=== PATIENT | female | born 1935 | race Caucasian/White ===

== ENCOUNTER 2023-10-18 10:42 | Outpatient (RCR) | payer OTHER, SELFPAY | END 2023-10-18 12:12 | disposition home or self-care (01) | LOC: RPT 10:42 | PROVIDERS: ATTENDING PHYSICIAN Orthopaedic Surgery Sports Medicine; PRIMARYCARE PHYSICIAN Family Medicine | DX: Z47.1 Aftercare following joint replacement surgery (principal); Z96.651 Presence of right artificial knee joint; R26.89 Other abnormalities of gait and mobility | CPT/HCPCS: 97010; 97110; 97112 ==

== ENCOUNTER 2024-02-15 13:03 | Inpatient (IN) | payer OTHER, SELFPAY ==
[2024-02-15] VITALS (27 sets, daily range): BP systolic 88–151; BP diastolic 54–97; BMI 25.3; BMI 24.8
--- NOTE | 2024-02-15 10:20 | ED.GENMED ---
History of Present Illness
General
Chief Complaint: Heart Rate Problem
Time Seen by Provider: 02/15/24 10:20
Travel History
Have you had any contact with someone who has COVID-19?: No
Do you have any symptoms of coronavirus? Fever > 100 degrees, chills, cough, shortness of breath, sore throat, loss of taste or smell, muscle aches, or headache?: No
History of Present Illness
History of Present Illness:
HPI: The patient called EMS today as she checked her blood pressure and heart rate and they are both elevated. She does not sense palpitations. She does not have a history of A-fib but was found to be in new onset rapid A-fib. 5 days ago she was
diagnosed with Flu A and has been having nausea, vomiting, and diarrhea. She feels somewhat dehydrated. She has never been to a watch repair person. She has PMD and urgent care this past week of not performed EKGs.
EXAM:
GENERAL: Well appearing in no distress
HEENT: Moist oral mucosa
CARDIOVASCULAR: No murmurs, tachycardic heart rate, irregular rhythm, No chest wall tenderness
PULMONARY: No respiratory distress, breath sounds are clear and equal
ABDOMEN: Soft with no peritoneal signs, no tenderness
NEUROLOGIC: Excellent strength all extremities, no coordination deficits
PSYCHIATRIC: Appropriate mental status, normal insight and judgement
EXTREMITIES: Nontender, no edema, moves all extremities equally
SKIN: No rash, no lesions
TIME OF INITIAL ENCOUNTER: 10:30 AM
NUMBER AND COMPLEXITY OF PROBLEMS ADDRESSED AT THE ENCOUNTER
� Chronic conditions affecting care: High blood pressure, CKD
� Acute Exacerbation and/or Progression of Chronic Illness: This is an acute problem
� Differential Diagnosis includes: New onset A-fib, dysrhythmia, thyroid disease
AMOUNT AND/OR COMPLEXITY OF DATA TO BE REVIEWED AND ANALYZED
� I performed an independent evaluation of and my interpretation is:
EKG: A-fib, rate of 133, PVCs, EKG on 08/29/2021 showed a sinus rhythm
CT:
X-rays:
Laboratory Studies: CBC, chemistries, TSH, troponin unremarkable
Other:
� Review of other/old records: I reviewed lab work from 2020 which was unremarkable
� Clinical information was obtained by an independent historian: James was given IV fluids prior to arrival
� Prescriptions/Medications Considered but not given:
� Further testing considered but not performed:
RISK OF COMPLICATIONS AND/OR MORBIDITY OR MORTALITY OF PATIENT MANAGEMENT
� Social determinants of health affecting care: Lives at home
� Discussion with other providers: I discussed with Dr. Riojas and he agrees that given that the time of onset of A-fib is unclear, he agrees that it would be too unsafe to cardiovert in the ED.
� Escalation of care including admission/observation vs risk of discharge considered: She has new onset A-fib but the time of onset is unclear. Dehydration may be a contributing factor and she was given IV fluids. Labs are
unremarkable. She was placed on Cardizem bolus and drip. Vital signs were closely monitored.
Past History
Past History
ED Past Medical History: HTN
ED Past Surgical History: Cholecystectomy and Orthopedic
Social History
Tobacco: Non-smoker
Personal:
Living: with family
Employment: Retired
Phy Exam
Physical Exam
Physical Exam:
See HPI
Course
Orders/Labs/Results
Orders:
Orders
02/15/24 Breakfast
Cholesterol Lowering
At Your Request: Full Participation
Cholesterol Lowering: Sodium, 2 Gram
02/15/24 10:17
Electrocardiogram (*1) Urgent
Reason for Study: Palpitations
EKG- Treatment ONCE
02/15/24 10:22
0.9% Sodium Chloride 500 ml [Nss] 500 ml IV BOLUS
02/15/24 10:23
CMP [Comprehensive Metabolic Panel] Urgent
Complete Blood Count/With Diff Urgent
Magnesium Urgent
PT/INR [Prothrombin Time] Urgent
PTT Urgent
02/15/24 10:24
TSH Reflex To Free T4 Urgent
Troponin I Urgent
02/15/24 11:10
Diltiazem 125 mg/125 ml Nss [Cardizem] 125 mg in 125 ml IV NOW
Initial dose in mg/hr, then titrate:: 10
Titrate to keep:: Heart rate 80-100 bpm
Titrate by mg/hr:: 5 mg/hr
Frequency of titrations (minutes):: 15
Maximum dose in mg/hr:: 15
Diltiazem HCl [Cardizem] 10 mg IV NOW STA
02/15/24 12:36
Admit/Transfer Patient As Directed
Co-Sign Provider:
Level of Care: Inpatient admission
Assign to:: IVU
Physician / Group: [email or web address]
Diagnosis: atrial fib with RVR
Reason for Hospitalization: atrial fib with RVR
Expected length of stay greater than two midnights?: Yes
ELOS- Estimated Length of Stay in days: 3
I certify the patient meets the requirements for IP care: Yes
02/15/24 12:37
Code Status As Directed
Resuscitation Status: Full Code
02/15/24 13:10
COVID-19 Antigen Routine
Source: Nasal Swab
Influenza A+B Rapid Molecular Urgent
SUZANNA Source: Nasal Swab
Specimen Description:
02/15/24 16:59
0.9% Sodium Chloride 1000 ml [Nss] 1,000 ml IV 60 mls/hr
02/15/24 16:59
CARDIOLOGY CONSULT Routine
Consulting Provider: Abad Riojas
Was physician already notified: Yes
Activity As Directed
Activity Level: As Tolerated
Vital Signs As Directed
Frequency: Per unit guidelines
DX Deep Vein Thrombosis Video Routine
02/15/24 20:00
Acetaminophen [Tylenol] 650 mg PO BID
02/16/24 04:59
Basic Metabolic Panel IN AM
Complete Blood Count/No Diff IN AM
02/16/24 08:00
Citalopram [Celexa] 20 mg PO DAILY
Lisinopril [Zestril] 5 mg PO DAILY
Rosuvastatin Calcium [Crestor] 5 mg PO DAILY
Abnormal Lab Results
02/15/24
10:23
MCH 32.0 H pg
(27.0-31.0)
Plt Count 123 L 10^3/uL
(130-400)
Monocytes % 10.2 H %
(1.7-9.3)
Sodium 132 L mmol/L
(135-145)
Glucose 132 H mg/dl
(70-99)
Total Protein 6.2 L g/dl
(6.3-8.2)
02/15/24 10:23
02/15/24 10:23
Vital Signs
Initial and Last Documented VS:
Initial Vital Signs
Temp Resp Pulse Ox
98.0 F 18 97
02/15/24 10:08 02/15/24 10:08 02/15/24 10:08
Last Documented Vital Signs
Temp Pulse Resp BP Pulse Ox
98.6 F 77 16 153/89 97
02/16/24 13:27 02/16/24 13:27 02/16/24 13:27 02/16/24 13:27 02/16/24 13:27
*Critical Care Note
Total Time (30-74mins, 75-104mins- exclusive of procedures): Not Applicable
ED Attending Note
-
Portions of this chart may have been created with voice recognition software.� Occasional wrong word or��sound alike� substitutions may have occurred due to the inherent limitations of voice recognition software.
Discharge Plan
Departure
Patient Disposition: Admit
Date of Disposition: 02/15/24
Time of Disposition: 12:55
Presentation/result/management discussed w/ accepting MD/DO: Hospitalist
Discharge Problem:
Atrial fibrillation with RVR
Interventions
Interventions:
*Risk Screen - Suicide Last Done: 02/15/24 10:08
*General Assessment Last Done: 02/15/24 10:08
*Neglect/Abuse Screening Last Done: 02/15/24 10:21
ED- Fall Risk Assessment Last Done: 02/15/24 10:34
*ED COVID-19 Vaccine History Last Done: 02/15/24 10:08
*Nursing Disposition Last Done: 02/15/24 16:55
ED- Cardiac Assessment Last Done: 02/15/24 10:08
ED- Pulmonary Assessment Last Done: 02/15/24 10:08
Discharge Date and Time
Discharge Date/Time: 02/15/24 17:00
[2024-02-15] MEDS: NSS 500 IV (10:27)
[2024-02-15 10:39] LABS: % Basophils 0.2 % (0-2); % Eosinophils 0.8 % (0-6); % Immature Granulocytes 0.4 % (0-0.5); % Lymphocytes 33.9 % (20.5-51.1); % Monocytes 10.2 % (1.7-9.3); % Neutrophils 54.5 % (42.2-75.2); Absolute Lymphocytes 1.8 10^3/uL (1.2-3.4); Absolute Monocytes 0.5 10^3/uL (0.1-0.6); Absolute Neutrophils 2.9 10^3/uL (1.4-6.5); Hematocrit 41.8 % (37.0-47.0); Mean Corp Hgb Conc. 33.5 g/dL (33.0-37.0); Mean Corpuscular Volume 95.7 fL (81.0-99.0); Mean Platelet Volume 10.1 fL (7.4-10.4); Nucleated Red Blood Cells % 0 %; Platelet Count 123 10^3/uL (130-400); Red Blood Cell Count 4.37 10^6/uL (4.20-5.40); Red Cell Dist. Width 13.1 % (11.5-14.5); White Blood Cell Count 5.2 10^3/uL (4.8-10.8)
[2024-02-15 10:47] LABS: APTT 25.9 Sec (23.4-35.0); INR 1.01; PT 13.1 Sec (11.4-14.6)
[2024-02-15 11:06] LABS: ALT (SGPT) 34 U/L (0-35); AST (SGOT) 35 U/L (14-36); Alkaline Phosphatase 66 U/L (38-126); Carbon Dioxide 24 mmol/L (22-30); Estimated Creatinine Clearance 45 ml/min; Glucose 132 mg/dl (70-99); Total Protein 6.2 g/dl (6.3-8.2); eGFR > 60.00
[2024-02-15 11:06] LABS: Troponin I < 0.012 ng/ml
[2024-02-15] MEDS: CARDIZEM 10 MG IV (11:14)
[2024-02-15] MEDS: CARDIZEM 125 IV (11:15)
[2024-02-15 11:25] LABS: TSH Reflex To Free T4 0.92 uIU/ml (0.47-4.68)
[2024-02-15 11:35] LABS: Albumin 3.8 g/dl (3.5-5.0); Blood Urea Nitrogen 11 mg/dl (7-17); Calcium 9.1 mg/dl (8.4-10.2); Chloride 103 mmol/L (98-107); Magnesium 1.7 mg/dl (1.6-2.3); Potassium 3.7 mmol/L (3.5-5.1); Sodium 132 mmol/L (135-145); Total Bilirubin 0.4 mg/dl (0.2-1.3)
--- NOTE | 2024-02-15 12:07 | HPS.HSE ---
Family Physician
-
Family Physician: Faith Carrera MD
Chief Complaint
-
elevated HR and BP
History of Present Illness
88 year old with PMH for HTN, CKD, HLD presented to us with elevated blood pressure and HR. checked her blood pressure and heart rate and they are both elevated. She does not sense palpitations. patient was tested positive on . she had
diarrhea since Wednesday. statues nauseous and epigastric pain. denied vomiting. denied fever, chills, sob, chest pain. denied runny nose, nasal congestion and cough. denied dysuria or hematuria.
On arrival patient was in A-fib with RVR. Initiated on Cardizem drip. Admitting for further management.
Medical History
Past Medical History
Past Medical History: Reports Other
Additional Past Medical History:
Hypertension
Chronic kidney disease stage III
Vertigo
Anxiety
Hyperlipidemia
Past Surgical History: Reports Other
Additional Past Surgical History:
Cholecystectomy
Lumbar laminectomy
Cataract surgery
Left hand carpal tunnel surgery
Right knee replacement
Social History
Tobacco: Former Smoker
Alcohol: Daily (1 glass of wine)
Drug: None
Personal:
Living: With Family
Family History
Family History: Not pertinent
Allergies / Home Medications
Allergies reflects when Allergies were last updated in [employer].
Home Medications with original date entered in [employer]
Allergy/Medication List:
Allergies
Allergy/AdvReac Type Severity Reaction Status Date / Time
No Known Allergies Allergy Unverified 08/29/21 17:34
Home Medications
acetaminophen 650 mg tablet,extended release 1,300 mg PO BID 02/15/24
benzonatate 100 mg capsule 100 mg PO TID PRN cough 02/15/24
calcium 1 tab PO DAILY 02/15/24
cholecalciferol (vitamin D3) 25 mcg (1,000 unit) tablet 25 mcg PO DAILY 02/15/24
citalopram 20 mg tablet 20 mg PO DAILY 02/15/24
coenzyme Q10 100 mg capsule (CoQ-10) 100 mg PO DAILY 02/15/24
fluticasone propionate 50 mcg/actuation nasal spray,suspension 1 spray intranasal DAILY 02/15/24
fluticasone propionate 50 mcg/actuation nasal spray,suspension 1 spray intranasal HSPRN PRN congestion 02/15/24
inulin 2 gram chewable tablet (Fiber Gummies) 4 g PO DAILYPRN PRN constipation 02/15/24
lisinopril 5 mg tablet 5 mg PO DAILY 02/15/24
loperamide 2 mg capsule 2 mg PO DAILYPRN PRN diarrhea 02/15/24
rosuvastatin 5 mg tablet 5 mg PO DAILY 02/15/24
Review of Systems
-
Constitutional: Reports No Symptoms
EENT: Reports No Symptoms
Respiratory: Reports No Symptoms
Cardiac: Reports Palpitations
Abdomen/GI: Reports Abdominal Pain and Diarrhea
: Reports No Symptoms
Musculoskeletal: Reports No Symptoms
Skin: Reports No Symptoms
Neurological: Reports Other (Lightheaded)
Endocrine: Reports No Symptoms
Hematologic/Lymphatic: Reports No Symptoms
Psych: Reports No Symptoms
Physical Exam
Vital Signs
Vital Signs
Temp Pulse Resp BP Pulse Ox
98.0 F 106 17 115/73 94
02/15/24 10:08 02/15/24 11:45 02/15/24 11:45 02/15/24 11:45 02/15/24 11:30
Physical Exam
General: Well Developed, Well Nourished and No Apparent Distress
HEENT: NormoCephalic, Moist mucous membranes and Atraumatic
Respiratory: Clear
Cardiac: S1/S2 and Regular Rhythm; No Murmur or Rub
GI: Soft, Non Tender, Non Distended and Normal Bowel Sounds; No Organomegaly
Rectal: Deferred by Provider
Musculoskeletal: No Clubbing, No Cyanosis and No Edema
Skin: No Rash
Neuro: AO x 3 and Nonfocal/grossly intact
Psych: Calm
Laboratory Results
-
02/15/24 10:23
02/15/24 10:23
Laboratory Results
PT 13.1 Sec (11.4-14.6) 02/15/24 10:23
INR 1.01 02/15/24 10:23
APTT 25.9 Sec (23.4-35.0) 02/15/24 10:23
Total Bilirubin 0.4 mg/dl (0.2-1.3) 02/15/24 10:23
AST 35 U/L (14-36) 02/15/24 10:23
ALT 34 U/L (0-35) 02/15/24 10:23
Alkaline Phosphatase 66 U/L (38-126) 02/15/24 10:23
Troponin I < 0.012 ng/ml 02/15/24 10:24
Data Reviewed
-
Lab Data: Labs Reviewed by me
Impression/Plan
-
#new onset atrial fib
-HR 100-130, improved with Cardizem drip
-EKG with atrial fib with RVR
-Cardizem drip continued
-obtain ECHO
-cardiology consulted
-#n//d likely from influenza A
-diarrhea improving
-ctm
-obtain stool culture if continued to have diarrhea
-
#hyponatremia likely hypovolemic
-na 132
-received normal saline bolus in ER
-normal saline 60cc/hr continued
-BmP in am
# Anxiety
-Citalopram continued
# Essential hypertension
-hypertensive on arrival
-Bp improved
-Lisinopril continued
# Hyperlipidemia
-Statin continued
# DVT prophylaxis
-Lovenox subcu
# CODE STATUS
-Full code
[2024-02-15 13:31] LABS: COVID-19 Antigen Negative (Negative)
--- NOTE | 2024-02-15 14:12 | W.PN.UPDATE ---
Update Note
Progress Note Update
HPI: 88 year old with PMH HTN, CKD, HLD presented with new onset atrial fibrillation with RVR.
She was flu positive 5 days ago, and according to patient, she is already out of the window for Tamiflu per her PCP.
She has been having nausea vomiting and diarrhea since her diagnosis of influenza, the symptoms have improved.
In the ER, she was started with Cardizem drip for rate control.
A/P:
# new onset atrial fibrillation with RVR on admission
Patient was started with Cardizem drip, continue for now.
Check echocardiogram
Cardiology consult, defer anticoagulation to cardiology
# N/V/D from influenza A
Symptoms are improving, continue to monitor
# Mild hyponatremia
# Anxiety
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
# Essential hypertension
Continue prior to admission lisinopril
Patient already on Cardizem drip for rate control currently
# Hyperlipidemia
Statin continued
DVT prophylaxis-Lovenox subcu
CODE STATUS-Full code
--- NOTE | 2024-02-15 14:24 | CON.CAR ---
Addendum entered and electronically signed by Abad Riojas MD 02/15/24 17:02:
I saw and examined the patient.
The PATIENT FINANCIAL COUNSELOR or PA's note was reviewed and I agree with the note.
88-year-old woman with a history of hypertension and hypercholesterolemia who presents with rapid heartbeat and noticed to have A-fib. Patient states she was not feeling well on February 07 and February 08 and went to see her PCP on the she is
generally did not feel well had nausea and was diagnosed with the flu. She then says she was feeling better until this morning when she was bending over to get something and then felt lightheaded and could tell her heart was beating faster she took
her heart rate and states it was as high as 150 went to the ER was noted to have A-fib with RVR. Rate controlled with IV Cardizem after being in the ER for a while the patient converted back to sinus rhythm. Currently comfortable and without
symptoms. No prior history of palpitations no prior history of A-fib. She has a history of hypertension but denies having a history of heart failure, CVA, TIA, PAD, CAD or diabetes.
-Newly diagnosed symptomatic PAF
-CHADSVASC - 4 (age greater than 75, female and hypertension)
-Patient currently in sinus rhythm
-Hold lisinopril and monitor blood pressure as Cardizem was added.
-Stop IV Cardizem and transition to Cardizem CD 120 mg today.
Eliquis 5 mg twice daily
-Eliquis 5 mg twice daily
Original Note:
Consultation
Consultation Request
Date/Time Consultation Requested: 02/15/24 12:30
Date/Time Consultation Performed: 02/15/24 14:30
Requesting Provider: EDDY Marcos
Performing Provider: EDDY Gaviria for Dr. Riojas
Reason for Consultation: Atrial fibrillation with RVR
Medical History
-
Chief Complaint: Elevated heart rate
History of Present Illness:
Zulema Goldman is an 88-year-old female with hypertension, dyslipidemia, and chronic kidney disease who presented to the emergency department with chief complaint of elevated heart rate and elevated blood pressure. She woke up this morning and was
feeling unwell. She checked her blood pressure and she reports the systolic was over 200 and her heart rate was in the 130s. She presented to the emergency department. She was found to have atrial fibrillation with rapid ventricular response.
She believes it started that morning but was unsure. She had no palpitations, dizziness, nor shortness of breath. She saw her PCP 02/10/2024 and tested positive for influenza A. She had already had ~48 hours of symptoms so she was not given any
Tamiflu. She reports she was slowly improving at home and was nearing back to normalcy.
Past Medical History
Past Medical History: HTN and Hypercholesterolemia
Past Surgical History: Cholecystectomy and Orthopedic
Social History
Tobacco: Former Smoker
Alcohol: Daily (1 glass of wine)
Drug: None
Personal:
Living: With Family
Employment: Retired
Family History
Family History: Other (Mother in 50s with CVA. Brother 60s due to ME.)
Allergies / Home Medications
Allergy/AdvReac Type Severity Reaction Status Date / Time
No Known Allergies Allergy Unverified 08/29/21 17:34
�Medication �Instructions �Recorded �Confirmed �Type
acetaminophen 650 mg 1,300 mg PO BID 02/15/24 02/15/24 History
tablet,extended release
benzonatate 100 mg capsule 100 mg PO TID PRN cough 02/15/24 02/15/24 History
calcium 1 tab PO DAILY 02/15/24 02/15/24 History
cholecalciferol (vitamin D3) 25 25 mcg PO DAILY 02/15/24 02/15/24 History
mcg (1,000 unit) tablet
citalopram 20 mg tablet 20 mg PO DAILY 02/15/24 02/15/24 History
coenzyme Q10 100 mg capsule 100 mg PO DAILY 02/15/24 02/15/24 History
(CoQ-10)
fluticasone propionate 50 1 spray intranasal DAILY 02/15/24 02/15/24 History
mcg/actuation nasal
spray,suspension
fluticasone propionate 50 1 spray intranasal HSPRN PRN 02/15/24 02/15/24 History
mcg/actuation nasal congestion
spray,suspension
inulin 2 gram chewable tablet 4 g PO DAILYPRN PRN constipation 02/15/24 02/15/24 History
(Fiber Gummies)
lisinopril 5 mg tablet 5 mg PO DAILY 02/15/24 02/15/24 History
loperamide 2 mg capsule 2 mg PO DAILYPRN PRN diarrhea 02/15/24 02/15/24 History
rosuvastatin 5 mg tablet 5 mg PO DAILY 02/15/24 02/15/24 History
Review of Systems
-
History Source: Patient
All other systems: Negative unless noted
Constitutional: Fatigue
Respiratory: No Symptoms
Cardiac: No Symptoms
Abdomen/GI: Diarrhea
Physical Exam
Vital Signs
Temp Pulse Resp BP Pulse Ox
98.0 F 74 21 100/80 96
02/15/24 10:08 02/15/24 13:46 02/15/24 13:46 02/15/24 13:46 02/15/24 13:46
Lab Results
02/15/24 10:23
02/15/24 10:23
Troponin I < 0.012 ng/ml 02/15/24 10:24
Impression / Plan
-
Atrial fibrillation with RVR, new diagnosis
-Onset unknown, no palps with rate 130s
-Back in sinus on diltiazem 5mg/hour, transition to oral
-Oral Anticoagulation: None prior to arrival, case management to [facility] Apixaban 5mg
-[id number]: score at least 4 (HTN, age 75 or more, female gender)
-TTE
Influenza A, positive 02/10/24, symptoms started 02/06-07/25, per primary
Diarrhea, per primary
HTN, follow
HLD, on rosuvastatin 5mg
Data Reviewed
-
EKG: Report Reviewed by me (Atrial fibrillation with RVR, rate 133)
Labs: Labs Reviewed by me
Old Records: Reviewed
[2024-02-15 16:13] LABS: Urine Albumin Negative (Neg - Trace); Urine Bilirubin Negative (Negative); Urine Character Clear (Clear); Urine Color Yellow; Urine Glucose Negative (Negative); Urine Ketone Negative (Negative); Urine Leukocyte Negative (Negative); Urine Nitrite Negative (Negative); Urine Occult Blood Negative (Negative); Urine Specific Gravity 1.005 (<1.030); Urine Urobilinogen Negative (Neg - 1+); Urine pH 6.5 (5.0-9.0)
[2024-02-15] MEDS: NSS 1000 IV (17:17)
--- NOTE | 2024-02-15 18:11 | PTCARENOTE ---
received patient from the ED. AAOx4. NSR. orders received to d/c cardizem gtt and start PO meds. IVFs ordered, and hung. 98% RA, droplet precautions placed for pos flu swab. BRP. independent with walking and care. will continue to monitor.
[2024-02-15] MEDS: ELIQUIS 5 MG PO (19:17)
[2024-02-15] MEDS: TYLENOL 650 MG PO (19:18)
[2024-02-16 04:42] VITALS: BP 151/88
--- NOTE | 2024-02-16 05:09 | DOWNTIME ---
There was a [facility] Client Manager Adult Downtime on 02/16/2024 from 0100 to 02/16/2024 at 0439. Downtime documentation of patient's care, including medication administrations, has been reconciled in the electronic record per guidelines. Refer to the
patient's paper chart under the miscellaneous tab to see printed paper medication records and downtime forms.
[2024-02-16 05:10] LABS: Hematocrit 40.1 % (37.0-47.0); Hemoglobin 13.8 g/dL (12.0-16.0); Mean Corp Hgb Conc. 34.4 g/dL (33.0-37.0); Mean Corpuscular Hgb 32.3 pg (27.0-31.0); Mean Corpuscular Volume 93.9 fL (81.0-99.0); Mean Platelet Volume 9.4 fL (7.4-10.4); Platelet Count 122 10^3/uL (130-400); Red Blood Cell Count 4.27 10^6/uL (4.20-5.40); White Blood Cell Count 3.8 10^3/uL (4.8-10.8)
--- NOTE | 2024-02-16 05:30 | PTCARENOTE ---
Patient remains SR-Sinus velma on tele monitor. HR in the 50-70's at rest. Patient denies any chest pain or discomfort. Ambulates self without difficulty. Afib packet given, education provided. Aware of POC, call kim in reach.
--- NOTE | 2024-02-16 05:31 | DOWNTIME ---
There was a [facility] Client Contact Lens Technician Downtime on 02/16/2024 from 0100 to 02/16/2024 at 0439. Downtime documentation of patient's care, including medication administrations, has been reconciled in the electronic record per guidelines. Refer to the
patient's paper chart under the miscellaneous tab to see printed paper medication records and downtime forms.
[2024-02-16 05:37] LABS: Blood Urea Nitrogen 10 mg/dl (7-17); Calcium 8.9 mg/dl (8.4-10.2); Carbon Dioxide 25 mmol/L (22-30); Chloride 108 mmol/L (98-107); Estimated Creatinine Clearance 52 ml/min; Glucose 91 mg/dl (70-99); Potassium 4.3 mmol/L (3.5-5.1); Sodium 134 mmol/L (135-145); eGFR > 60.00
[2024-02-16 07:10] VITALS: BP 176/85
[2024-02-16 07:12] VITALS: BP 173/91
[2024-02-16 08:18] VITALS: BP 162/95
[2024-02-16] MEDS: TYLENOL 650 MG PO (08:21)
[2024-02-16] MEDS: ELIQUIS 5 MG PO (08:22)
[2024-02-16] MEDS: CRESTOR 5 MG PO (08:22)
[2024-02-16] MEDS: CELEXA 20 MG PO (08:25)
[2024-02-16] MEDS: CARDIZEM CD 120 MG PO (08:25)
--- NOTE | 2024-02-16 09:13 | CM ---
Reviewed chart. Met with Mrs. Goldman to review discharge plans. She states prior to admission she resides with her spouse in a one story home with one step to enter. She states she resides in [facility]. She states she has been there for
fourteen years. She states prior to admission she was independent with ambulation and adls. She states she is not using any DME in the home. She states she has a prescription plan and uses [facility]. Telephone call to [facility],
([phone]) to check co-pay for Eliquis 5 mg po bid. Her co-pay would be $47.00 a month or $94.00 for three month supply. Reviewed co-pay s with her. She is agreeable to the co-pay. Placed the one month free coupon in the red discharge folder.
Medical work-up in progress. The discharge plan is to return home with her spouse when medically stable.
--- NOTE | 2024-02-16 10:11 | W.PN.HOSP.TC ---
Addendum entered and electronically signed by Ashwini Cantrell MD 02/16/24 10:31:
d/w Card Dr Phan, tele noted PAC with activity, cleared for discharge
total DC time 35 min
Original Note:
Today's Communication/Plan
-
see A/P
Assessment / Plan
Assessment / Plan
HPI: 88 year old with PMH HTN, CKD, HLD presented with new onset atrial fibrillation with RVR.
She was flu positive 5 days ago, and according to patient, she is already out of the window for Tamiflu per her PCP.
She has been having nausea vomiting and diarrhea since her diagnosis of influenza, the symptoms have improved.
In the ER, she was started with Cardizem drip for rate control.
A/P:
# new onset atrial fibrillation with RVR on admission, resolved
s/p Cardizem drip and pt converted back to NSR on her own
Cardizem PO 120 mg daily added
Started Eliquis 5 mg twice daily
Echocardiogram unrevealing: Normal biventricular size and systolic function without regional wall motion abnormality. No significant valvular disease. Moderate pulmonary hypertension.
Cardiology on board
# N/V/D from influenza A
Symptoms are improving, continue to monitor
Zofran PRN
# Mild hyponatremia
Sodium level 134 today
# Anxiety
cont ADMITTING OFFICE ESCORT Citalopram
# Essential hypertension
ADMITTING OFFICE ESCORT lisinopril stopped to give BP room for Cardizem PO 120 mg daily
# Hyperlipidemia
Statin continued
DVT prophylaxis-Lovenox subcu
CODE STATUS-Full code
DW Card
Anticipated Discharge: Within 24 hours
Subjective/Interval History
-
Date of Service: February 16, 2024
Objective Data
-
Labs:
Laboratory Results
02/16/24
04:59
WBC 3.8 L
Hgb 13.8
Hct 40.1
Plt Count 122 L
Sodium 134 L
Potassium 4.3
Chloride 108 H
Carbon Dioxide 25
BUN 10
Creatinine 0.7
Glucose 91
Calcium 8.9
Vital Signs:
Vital Signs
Temp Pulse Resp BP Pulse Ox
37.0 C 65 16 151/88 95
02/16/24 07:00 02/16/24 05:00 02/16/24 07:00 02/16/24 04:42 02/16/24 07:00
I&O
02/15/24 02/16/24 02/17/24
06:59 06:59 06:59
Intake Total 1260 / 1260
Balance 1260 / 1260
Review of Systems
-
All other systems: Reviewed and negative
Physical Exam
-
General: Well Developed, Well Nourished, No Apparent Distress, Comfortable and Conversant; Negative Respiratory Distress
HEENT: Normocephalic, Atraumatic, Nose Appears Normal and Ears Appear Normal; Negative Oxygen
Respiratory: Clear to Auscultation and Non Labored Respirations; Negative Accessory Resp Muscle Use
Cardiac: Regular Rhythm and S1/S2
GI: Soft, Nontender, Nondistended and Normal Bowel Sounds
Skin: Warm and Dry
Neuro: Awake, Alert, Oriented, AO x 3 and Nonfocal/Grossly Intact
Psych: Calm and Intact Judgement/Insight
Data Reviewed
-
Labs: Labs Reviewed by me
--- NOTE | 2024-02-16 10:23 | W.PN.CD ---
Today's Communication / Plan
-
- no cardiac contraindication to d/c
- MEDS: Cardizem CD 120 po qd (new), Eliquis 5 po BID (new), and rosuvastatin 5 po qd
- Follow up: Gladys Keene March 08 at 10:00
Impression / Plan
-
Impression: 88F with paroxysmal AF
Plan
Atrial fibrillation with RVR, new diagnosis
-Back in sinus on diltiazem 5mg/hour, transitioned to oral
-Oral Anticoagulation: apixaban 5 po BID
-TTE shows PASP 56 mmHg, which requires an outpatient evaluation
Influenza A, positive 02/10/24, symptoms started 02/06-07/25, per primary
Diarrhea, per primary
HTN, follow
HLD, on rosuvastatin 5mg
Dispo
- no cardiac contraindication to d/c
- MEDS: Cardizem CD 120 po qd (new), Eliquis 5 po BID (new), and rosuvastatin 5 po qd
- Follow up: Gladys Keene March 08 at 10:00
Subjective: Nausea. No CP, palps, or dyspnea
Physical Exam
Vital Signs/Labs
Vital Signs
Temp Pulse Resp BP Pulse Ox
37.0 C 65 16 151/88 95
02/16/24 07:00 02/16/24 05:00 02/16/24 07:00 02/16/24 04:42 02/16/24 07:00
02/15/24 02/16/24 02/17/24
06:59 06:59 06:59
Actual Weight 149 lb 0.52 oz
02/16/24 04:59
02/16/24 04:59
PT 13.1 Sec (11.4-14.6) 02/15/24 10:23
INR 1.01 02/15/24 10:23
APTT 25.9 Sec (23.4-35.0) 02/15/24 10:23
Magnesium 1.7 mg/dl (1.6-2.3) 02/15/24 10:23
LAB Results
02/15/24
10:24
Troponin I < 0.012
Physical Exam
Constitutional: No acute distress
EENT: Anicteric and Moist mucous membranes
Cardiovascular: Rhythm & rate is regular, Pedal edema is absent, Systolic murmur absent and Diastolic murmur absent
Respiratory: Respiratory effort normal
GI: Soft, Distention absent, Non tender and Normal bowel sounds
Neuro/Psych: Alert
Data Reviewed
-
Date of Service: February 16, 2024
EKG: Other (SR/ST with PACs)
[2024-02-16] MEDS: ZOFRAN 4 MG IV (10:47)
[2024-02-16 10:53] VITALS: BP 137/82
[2024-02-16 13:27] VITALS: BP 153/89
--- NOTE | 2024-02-16 14:02 | W.DCSUMMARY ---
Discharge Summary
Discharge Data
Date of Admission: 02/15/24
Date of Discharge: 02/16/24
-
Pending Results: No
Hospital Course
Principal Diagnosis:
New onset atrial fibrillation with rapid ventricular rate on admission-spontaneously converted to normal sinus rhythm following Cardizem drip
Recent influenza A infection, out of window for Tamiflu
Chronic Diagnoses:�
Mild hyponatremia
Anxiety on Citalopram
Essential hypertension. 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
Hyperlipidemia
Consultations:�
Cardiology
Procedures:�
None
Clinical course:�
This is a 88 year old with past medical history as stated above, who presented with new onset atrial fibrillation with RVR.
She was tested flu positive 5 days ago prior to admission, and according to the patient, she is already out of the window for Tamiflu per her PCP.
Problem 1:
New onset atrial fibrillation with RVR on admission.
Patient was started with Cardizem drip and she spontaneously converted back to normal sinus rhythm.
She was started with Cardizem PO 120 mg daily by cardiology which she can continue going forward.
She was also started with Eliquis 5 mg twice daily.
Her echocardiogram was unrevealing: Normal biventricular size and systolic function without regional wall motion abnormality. No significant valvular disease. Moderate pulmonary hypertension.
Problem 2:
Nausea from influenza A.
Symptoms improved.
She was discharged with Zofran 3 doses for as needed use for nausea.
As for the rest of her medical problems, they were stable during her hospital stay.
Discharge Plan
-
Patient Disposition: Home (Routine Discharge)
Discharge Diagnosis/Procedures: New onset atrial fibrillation (resolved); nausea from influenza A infection
Condition: Good
Diet: As tolerated
Activity: As tolerated
Driving Restrictions: As prior to admission
Referrals:
Japanese,Faith A., MD [Family Provider] - in less than 1 week
Additional Discharge Medication Instructions: Take Cardizem 120 mg daily
Stop Lisinopril
Take Eliquis (blood thinner) for your A fib
Prescriptions:
New
diltiazem HCl [Cartia XT] 120 mg Capsule,Extended Release 24hr
120 mg PO DAILY Qty: 30 0RF
ondansetron HCl 4 mg tablet
4 mg PO DAILY PRN (Reason: nausea and vomiting) 3 Days Qty: 3 0RF
Eliquis 5 mg Tablet
5 mg PO BID Qty: 60 0RF
Continued
loperamide 2 mg Capsule
2 mg PO DAILYPRN PRN (Reason: diarrhea)
acetaminophen 650 mg Tablet Extended Release
1,300 mg PO BID
citalopram 20 mg Tablet
20 mg PO DAILY
benzonatate 100 mg Capsule
100 mg PO TID PRN (Reason: cough)
Patient Comments:
02/15/2024, per pt., this med. makes her nauseous.
fluticasone propionate 50 mcg/actuation [place],Suspension
1 spray INTRANASAL DAILY
fluticasone propionate 50 mcg/actuation [place],Suspension
1 spray INTRANASAL HSPRN PRN (Reason: congestion)
coenzyme Q10 [CoQ-10] 100 mg Capsule
100 mg PO DAILY
rosuvastatin 5 mg Tablet
5 mg PO DAILY
cholecalciferol (vitamin D3) 25 mcg (1,000 unit) Tablet
25 mcg PO DAILY
Fiber Gummies 2 gram Tablet,Chewable
4 g PO DAILYPRN PRN (Reason: constipation)
calcium
1 tab PO DAILY
Discontinued
lisinopril 5 mg Tablet
5 mg PO DAILY
Discharge Orders:
Discharge Patient (As Directed); Ordered 02/16/24
Ordered By: Ashwini Cantrell
Care Plan Goals
Care Plan Goals:
Problem: Readiness for enhanced knowledge related to diagnosis and treatment plan
Goal: Understand your diagnosis and treatment plan needs, including medications if applicable.
Instructions: Know your diagnosis, underlying causes and treatment plan options, including medications if applicable. Consult with your health care team to learn about your diagnosis and treatment plan, including medications if applicable.
Discharge Date and Time
Print Language: BELARUSIAN
--- NOTE | 2024-02-16 14:06 | PTCARENOTE ---
Pt remains in SR. OOB ad maninder in the room. Relief from nausea obtained with the Zofran. Denies any pain or sob. Pt discharged to home with her . Discharge instructions given and reviewed with good understanding.
--- NOTE | 2024-02-16 14:22 | PTOTSP ---
Patient with good insight into safety and mobility. Does not currently demonstrate need for skilled therapy and will be discharged from caseload. If needs change, please re-consult.
== END 2024-02-16 14:55 | disposition home or self-care (01) | DRG 309 ==
LOC: IVU 13:03
PROVIDERS: Registered Nurse; ADMITTING PHYSICIAN Internal Medicine; CONSULT PHYSICIAN Internal Medicine Cardiovascular Disease; EMERGENCY PHYSICIAN Emergency Medicine; FAMILY PHYSICIAN Family Medicine
DX: I48.0 Paroxysmal atrial fibrillation (principal); E87.1 Hypo-osmolality and hyponatremia; I12.9 Hypertensive chronic kidney disease with stage 1 through stage 4 chronic kidney disease, or unspecified chronic kidney disease; J10.1 Influenza due to other identified influenza virus with other respiratory manifestations; Z11.52 Encounter for screening for COVID-19; Z87.891 Personal history of nicotine dependence; E86.1 Hypovolemia; F41.9 Anxiety disorder, unspecified; N18.30 Chronic kidney disease, stage 3 unspecified; E78.00 Pure hypercholesterolemia, unspecified
CPT/HCPCS: 80048; 80053; 81003; 83735; 84443; 84484; 85025; 85027; 85610; 85730; 87502; 87811; 93005; 93306; 96361; 96374; 96376; 97162; 97165; 99285

== ENCOUNTER → 2024-03-15 10:29 | Outpatient (REF) | payer OTHER, SELFPAY | LOC: HWWDC 10:29 | PROVIDERS: ATTENDING PHYSICIAN Family Medicine | DX: Z12.31 Encounter for screening mammogram for malignant neoplasm of breast (principal) | CPT/HCPCS: 77063; 77067 ==

== ENCOUNTER → 2024-05-01 08:25 | Outpatient (REF) | payer OTHER, SELFPAY | LOC: DHCBC/DCA 08:25 | PROVIDERS: ATTENDING PHYSICIAN Internal Medicine Cardiovascular Disease; FAMILY PHYSICIAN Family Medicine | DX: I48.91 Unspecified atrial fibrillation (principal) | CPT/HCPCS: 78452; 93017; A9500; J2785 ==

== ENCOUNTER → 2024-05-03 10:10 | Outpatient (REF) | payer OTHER, SELFPAY | LOC: HWRCS 10:10 | PROVIDERS: ATTENDING PHYSICIAN Internal Medicine Cardiovascular Disease; FAMILY PHYSICIAN Family Medicine | DX: I48.91 Unspecified atrial fibrillation (principal) | CPT/HCPCS: 93308 ==

== ENCOUNTER 2024-08-10 21:29 | Inpatient (IN) | payer OTHER, SELFPAY ==
[2024-08-10] VITALS (9 sets, daily range): BP systolic 83–132; BP diastolic 50–84; BMI 26.4
--- NOTE | 2024-08-10 13:26 | ED.GENMED ---
Addendum entered and electronically signed by Collin Tamez DO 08/10/24 21:00:
Persistent hypotension, consented for blood, [facility] ordered, IR is currently take to the lab to do an angiogram
Addendum entered and electronically signed by Collin Tamez DO 08/10/24 20:40:
Update addendum to the initial CAT scan noted labs are noted blood pressure in the 90s, call from radiology patient with acute hemorrhage from a branch of the right posterior iliac, reviewed with IR and vascular, and hospitalist will reverse,
resuscitate, keep n.p.o. hopefully reversing her anticoagulation will help,
CRITICAL CARE STATEMENT: A total of 40 minutes of critical care time was provided for this patient. This includes management of unstable vital signs, evaluation of the patient at bedside, reviewing the patient's pertinent medical records discussion
with EMS providers and patient's family in addition to discussion with consultants, review of old EKGs and review of pertinent medical records. This time with separate from time utilized to perform the aforementioned documented procedures
Addendum entered and electronically signed by Collin Tamez DO 08/10/24 18:35:
Update prior to discharge patient reports that she feels dizzy, states her pain is better will check screening blood work, EKG
Original Note:
ED Provider Triage
[place];Carole Valenzuela PA-C - Last Filed: 08/10/24 13:29>
-
Patient seen by provider in Triage?: Seen in Triage
Attestation: A medical screening examination has been initiated by a qualified medical provider. Based on the assessment performed at this time, it has been determined that an emergent medical condition may exist and the patient has been informed
that further medical evaluation and possible additional diagnostic testing may be needed.
HPI: 88yoF here with R hip pain. Started at noon today when she turned the wrong way. C/o pain radiating to groin and buttock.
GENERAL: Alert , in no apparent distress
EYE: No visual abnormalities.
NECK: Trachea midline
ENT: No visible abnormalities.
LUNGS: No acute respiratory distress
NEUROLOGICAL: Alert and oriented
SKIN: Skin intact. No visible changes.
MUSCULOSKELETAL: Moving extremities normally
PSYCH: Normal and appropriate interaction.
This is a medical evaluation conducted in person to initiate diagnostic evaluation and provide initial therapeutics. Please see further documentation by the treating clinician.
X-rays ordered.
History of Present Illness
<Carole Valenzuela PA-C - Last Filed: 08/10/24 13:29>
General
Chief Complaint: Musculo-Skeletal Complaint
Time Seen by Provider: 08/10/24 14:03
<Alissa Emerson PA-C - Last Filed: 08/10/24 16:13>
General
Source: patient
Exam Limitations: none
Nursing documentation reviewed up to this point in time: agreed with
History of Present Illness
History of Present Illness:
88-year-old female with past medical history of A-fib on Eliquis, hypertension, hyperlipidemia presenting the emergency department today with concerns of sudden onset of right lower hip/buttocks pain. Patient states that she was walking into her
living room today when she got a sudden onset severe pain in her right buttocks radiating into the right posterior thigh. She also feels that she has pain in her hip. Patient states that the pain was so severe at the time that she felt like she
was going to almost lose consciousness. She started to feel flushed. Patient reports that when she sat down, the pain started to get better but with ambulation, the pain is unbearable. Patient states that the pain is so severe that she had to
call EMS. Here in the emergency department, she does not have much pain while lying supine and not moving, however patient reports that the second she will try to bear weight, she will almost get nauseous because the pain is so severe. Patient is
never had pain like this before. Patient denies any urinary symptoms, denies any hematuria. Patient denies any fevers or chills. Patient Nuys any chest pain or shortness of breath. Patient says that she has osteoarthritis and got pain in her
other hip before, but is never been like this. Patient denies any history of falls or trauma
Past History
<Carole Valenzuela PA-C - Last Filed: 08/10/24 13:29>
Past History
ED Past Medical History: HTN
ED Past Surgical History: Cholecystectomy and Orthopedic
Social History
Tobacco: Non-smoker
Personal:
Living: with family
Employment: Retired
Review of Systems
<Alissa Emerson PA-C - Last Filed: 08/10/24 16:13>
Review of Systems
All Other Systems: ROS reviewed and negative except as documented in HPI and ROS
Phy Exam
<Alissa Emerson PA-C - Last Filed: 08/10/24 16:13>
Physical Exam
Physical Exam:
General: Patient is well appearing and in no acute distress; non-toxic
Skin: Warm and dry, no rashes or lesions
Head: Normocephalic, atraumatic
Eyes: Sclera non-icteric. EOMs intact.
Cardiac: Regular rate
Peripheral Vascular: No lower extremity swelling or edema, 2+ dorsalis pedis and posterior tibial pulses bilaterally
Pulm: Normal respiratory effort
Abdomen: No abdominal tenderness to palpation.
Musculoskeletal: Full range of motion of bilateral lower extremities. No tenderness to palpation of the midline lumbar spine. No tenderness palpation of the right hip joint, no palpable bony deformities. Tenderness palpation of the right
paralumbar musculature as well as buttocks. Pain with hip flexion, no pain with hip hip internal or external rotation.
Neuro: CN II-XII intact, no focal neurologic deficits.
Psychiatric: Appropriate mood and affect.
Course
<Carole Valenzuela PA-C - Last Filed: 08/10/24 13:29>
Orders/Labs/Results
Orders:
Orders
08/10/24 14:[address] Pelvis W/o Iv Contrast Urgent
Comment:
Reason For Exam: sudden onset severe right hip pain
Vital Signs
Initial and Last Documented VS:
Initial Vital Signs
Temp Pulse Resp BP Pulse Ox
98.5 F 74 18 132/78 99
08/10/24 13:22 08/10/24 13:22 08/10/24 13:22 08/10/24 13:22 08/10/24 13:22
Last Documented Vital Signs
Temp Pulse Resp BP Pulse Ox
98.5 F 74 18 132/78 99
08/10/24 13:22 08/10/24 13:22 08/10/24 13:22 08/10/24 13:22 08/10/24 13:22
<Alissa Emerson PA-C - Last Filed: 08/10/24 16:13>
Orders/Labs/Results
Orders:
Orders
08/10/24 14:[address] Pelvis W/o Iv Contrast Urgent
Comment:
Reason For Exam: sudden onset severe right hip pain
Vital Signs
Initial and Last Documented VS:
Initial Vital Signs
Temp Pulse Resp BP Pulse Ox
98.5 F 74 18 132/78 99
08/10/24 13:22 08/10/24 13:22 08/10/24 13:22 08/10/24 13:22 08/10/24 13:22
Last Documented Vital Signs
Temp Pulse Resp BP Pulse Ox
98.5 F 74 18 132/78 99
08/10/24 13:22 08/10/24 13:22 08/10/24 13:22 08/10/24 13:22 08/10/24 13:22
<Collin Tamez DO - Last Filed: 08/10/24 18:08>
Orders/Labs/Results
Orders:
Orders
08/10/24 14:[address]
CT Pelvis W/o Iv Contrast Urgent
Comment:
Reason For Exam: sudden onset severe right hip pain
Vital Signs
Initial and Last Documented VS:
Initial Vital Signs
Temp Pulse Resp BP Pulse Ox
98.5 F 74 18 132/78 99
08/10/24 13:22 08/10/24 13:22 08/10/24 13:22 08/10/24 13:22 08/10/24 13:22
Last Documented Vital Signs
Temp Pulse Resp BP Pulse Ox
98.5 F 74 18 132/78 99
08/10/24 13:22 08/10/24 13:22 08/10/24 13:22 08/10/24 13:22 08/10/24 13:22
<Alissa Emerson PA-C - Last Filed: 08/10/24 16:13>
MDM/Problems Addressed
Differential Diagnosis Includes:
Differentials include osteoarthritis, vertebral compression fracture, sciatica, herniated nucleus pulposus, ileus psoas/retroperitoneal hemorrhage
MDM/Problems Addressed:
88-year-old female past medical history of A-fib on Eliquis, chronic kidney disease, osteoarthritis presents emergency department today with sudden onset of severe right sided hip/buttocks pain. Patient states that occurred suddenly when walking
into the living room and denies any history of trauma or falls. Patient states that the pain became so severe that she had called EMS. On exam, she is well-appearing notes that she feels minimal pain at rest but notes that the pain becomes
unbearable with ambulation. On physical exam, she is well-appearing, she has no signs of trauma to the area, she is pain with hip adduction and tenderness palpation of the musculature but no pain with internal/external rotation of the right hip.
No overlying ecchymosis. Considering Eliquis use and sudden onset severe pain, will send for CAT scan, patient declining any medication at this time.
Chronic conditions affecting care:
CKD, afib on eliquis, HTN, HLP
<Alissa Emerson PA-C - Last Filed: 08/10/24 16:13>
*Pulse Oximetry
Patient hypoxic: no
*Critical Care Note
Total Time (30-74mins, 75-104mins- exclusive of procedures): Not Applicable
Data Reviewed
Review of Other/Old Records Reveals: Records
ED Attending Note
<Carole Valenzuela PA-C - Last Filed: 08/10/24 13:29>
-
Portions of this chart may have been created with voice recognition software.� Occasional wrong word or��sound alike� substitutions may have occurred due to the inherent limitations of voice recognition software.
<Collin Tamez DO - Last Filed: 08/10/24 18:08>
ED Attending Note
Patient seen and examined by attending physician: Yes
I performed the substantive portion of visit, reviewed & personally made and approve the management plan that is documented in note by myself or BETTINA.: Yes
ED Attending Note:
Seen with PA examined independently imaging noted nontoxic female right hip pain was moving a mattress earlier pain only with movement CT noted offered analgesia she politely declined like to just take Tylenol
Discharge Plan
Departure
Patient Disposition: Home (Routine Discharge)
Date of Disposition: 08/10/24
Time of Disposition: 18:08
Patient with high blood pressure during this ER visit?: No
Condition: Good
Covid-19: Not Applicable
Discharge Problem:
Hip pain
Instructions: Hip Pain ED, BLOOD PRESSURE
Prescriptions:
No Action
loperamide 2 mg Capsule
2 mg PO DAILYPRN PRN (Reason: diarrhea)
acetaminophen 650 mg Tablet Extended Release
1,300 mg PO BID
citalopram 20 mg Tablet
20 mg PO DAILY
benzonatate 100 mg Capsule
100 mg PO TID PRN (Reason: cough)
Patient Comments:
02/15/2024, per pt., this med. makes her nauseous.
fluticasone propionate 50 mcg/actuation [place],Suspension
1 spray INTRANASAL DAILY
fluticasone propionate 50 mcg/actuation [place],Suspension
1 spray INTRANASAL HSPRN PRN (Reason: congestion)
coenzyme Q10 [CoQ-10] 100 mg Capsule
100 mg PO DAILY
rosuvastatin 5 mg Tablet
5 mg PO DAILY
cholecalciferol (vitamin D3) 25 mcg (1,000 unit) Tablet
25 mcg PO DAILY
Fiber Gummies 2 gram Tablet,Chewable
4 g PO DAILYPRN PRN (Reason: constipation)
calcium
1 tab PO DAILY
diltiazem HCl [Cartia XT] 120 mg Capsule,Extended Release 24hr
120 mg PO DAILY Qty: 30 0RF
ondansetron HCl 4 mg tablet
4 mg PO DAILY PRN (Reason: nausea and vomiting) 3 Days Qty: 3 0RF
Eliquis 5 mg Tablet
5 mg PO BID Qty: 60 0RF
Referrals:
Grant Gordillo MD [Active] - Call in 1-3 days for appt
Faith Carrera MD [Family Provider] -
Activity Restrictions/Additional Instructions:
Please return to the emergency department for any new or worsening concerns.
Please follow up with your PCP.
Interventions
Interventions:
*Risk Screen - Suicide Last Done: 08/10/24 13:22
*General Assessment Last Done: 08/10/24 13:22
*Neglect/Abuse Screening Last Done: 08/10/24 13:22
Discharge Date and Time
Print Language: SINHALA
[2024-08-10] MEDS: NSS 1000 IV ×2 (19:02→21:04)
[2024-08-10 19:14] LABS: % Basophils 0.4 % (0-2); % Eosinophils 0.2 % (0-6); % Immature Granulocytes 0.3 % (0-0.5); % Lymphocytes 13.2 % (20.5-51.1); % Monocytes 4.8 % (1.7-9.3); % Neutrophils 81.1 % (42.2-75.2); Absolute Lymphocytes 1.3 10^3/uL (1.2-3.4); Absolute Monocytes 0.5 10^3/uL (0.1-0.6); Absolute Neutrophils 7.9 10^3/uL (1.4-6.5); Hematocrit 33.7 % (37.0-47.0); Hemoglobin 11.6 g/dL (12.0-16.0); Mean Corp Hgb Conc. 34.4 g/dL (33.0-37.0); Mean Corpuscular Hgb 34.1 pg (27.0-31.0); Mean Corpuscular Volume 99.1 fL (81.0-99.0); Mean Platelet Volume 10.3 fL (7.4-10.4); Nucleated Red Blood Cells % 0 %; Platelet Count 162 10^3/uL (130-400); Red Cell Dist. Width 12.9 % (11.5-14.5); White Blood Cell Count 9.7 10^3/uL (4.8-10.8)
[2024-08-10 19:30] LABS: ALT (SGPT) 14 U/L (0-35); AST (SGOT) 17 U/L (14-36); Albumin 3.8 g/dl (3.5-5.0); Alkaline Phosphatase 49 U/L (38-126); Blood Urea Nitrogen 24 mg/dl (7-17); Calcium 9.2 mg/dl (8.4-10.2); Carbon Dioxide 24 mmol/L (22-30); Chloride 101 mmol/L (98-107); Glucose 170 mg/dl (70-99); Potassium 4.7 mmol/L (3.5-5.1); Sodium 136 mmol/L (135-145); Total Bilirubin 0.4 mg/dl (0.2-1.3); Total Protein 5.9 g/dl (6.3-8.2); eGFR 54.87
[2024-08-10 19:39] LABS: Troponin I < 0.012 ng/ml
--- NOTE | 2024-08-10 20:39 | HPS.HSE ---
Family Physician
-
Family Physician: Faith Carrera MD
Chief Complaint
-
Right hip pain
History of Present Illness
This is an 88-year-old female with a past medical history of atrial fibrillation on anticoagulation with Eliquis, hyperlipidemia who presents to the emergency department with acute onset of right hip pain. Was found to be hypotensive while in the
ED.
Patient reported being in usual state of health up until today. She denied any trauma or accident. She just got up from a kneeling position and started having right hip and groin pain. There was no radiation down to the legs. She denied any back
pain. She denied any dysuria. She denied any hematuria. She denies any discoloration or for skin in her back or legs.
Patient has been on Eliquis since January. She denied having any palpitations since then. She denied feeling dizzy or lightheaded since then. Patient denies taking any on her antiplatelet medications including aspirin, NSAIDs.
Initial evaluation in the ED was mostly unremarkable. However when she stood up to return home she had a presyncopal episode with lightheadedness and dizziness. Her blood pressure dropped to 83/67. Once laid down she felt better and her blood
pressure improved to 101/50. Sat was 98% on room air. She had a head CT which was negative. There was concern for possible abdominal aneurysm. So she had a CT of the abdomen pelvis with did show contrast extravasation into the hematoma in the
posterior medial right consistent with active hemorrhage. The hemorrhage appears to be from a posterior branch of the right internal iliac artery.
Her labs showed a normal white count of 9.7 hemoglobin of 11.6 which is slightly down from prior 12. Chemistries were all within normal limits. BUN/creatinine were within normal limits. ECG showed a normal sinus rhythm at a rate of [address] or T wave changes.
Medical History
Past Medical History
Past Medical History: Reports Arrhythmia (paroxyxmal Atrial fibrillation), HTN and Hypercholesterolemia
Additional Past Medical History:
CKD 3
Past Surgical History: Reports Other
Social History
Tobacco: Non-smoker
Alcohol: None
Drug: None
Personal:
Living: With Family
Employment: Retired
Family History
Family History: Not pertinent
Allergies / Home Medications
Allergies reflects when Allergies were last updated in [facility].
Home Medications with original date entered in [facility]
Allergy/Medication List:
Allergies
Allergy/AdvReac Type Severity Reaction Status Date / Time
No Known Allergies Allergy Verified 08/10/24 13:22
Home Medications
acetaminophen 650 mg tablet,extended release 1,300 mg PO BID Pain 02/15/24
cholecalciferol (vitamin D3) 25 mcg (1,000 unit) tablet 25 mcg PO DAILY Supplement 02/15/24
citalopram 20 mg tablet 20 mg PO DAILY depression/anxiety 02/15/24
coenzyme Q10 100 mg capsule (CoQ-10) 100 mg PO DAILY Supplement 02/15/24
fluticasone propionate 50 mcg/actuation nasal spray,suspension 1 spray intranasal DAILY Allergies 02/15/24
inulin 2 gram chewable tablet (Fiber Gummies) 4 g PO DAILYPRN PRN constipation 02/15/24
loperamide 2 mg capsule 2 mg PO DAILYPRN PRN diarrhea 02/15/24
rosuvastatin 5 mg tablet 5 mg PO DAILY High Cholesterol 02/15/24
apixaban 5 mg tablet (Eliquis) 5 mg PO BID #60 tabs 02/16/24
diltiazem HCl 120 mg capsule,extended release 24 hr (Cartia XT) 120 mg PO DAILY #30 caps 02/16/24
Review of Systems
-
History Source: Patient
Constitutional: Reports No Symptoms
EENT: Reports No Symptoms
Respiratory: Reports No Symptoms
Cardiac: Reports No Symptoms
Abdomen/GI: Reports No Symptoms
: Reports No Symptoms
Musculoskeletal: Reports Joint Pain
Skin: Reports No Symptoms
Neurological: Reports No Symptoms
Endocrine: Reports No Symptoms
Hematologic/Lymphatic: Reports No Symptoms
Psych: Reports No Symptoms
Physical Exam
Vital Signs
Vital Signs
Temp Pulse Resp BP Pulse Ox
98.5 F 75 16 96/84 99
08/10/24 13:22 08/10/24 20:15 08/10/24 20:15 08/10/24 20:05 08/10/24 19:37
Physical Exam
General: Well Developed, Well Nourished, Comfortable and Conversant
HEENT: NormoCephalic, Anicteric, Moist mucous membranes and Atraumatic
Respiratory: Clear
Cardiac: S1/S2 and Regular Rhythm
Breast: Deferred by me
GI: Soft, Non Tender, Non Distended and Normal Bowel Sounds
Rectal: Deferred by Provider
Genito-urinary: Deferred by me
Musculoskeletal: No Clubbing, No Cyanosis and No Edema
Skin: Warm
Neuro: AO x 3
Hematologic/Lymphatic: No Lymphadenopathy
Psych: Calm
Laboratory Results
-
08/10/24 18:52
Laboratory Results
Total Bilirubin 0.4 mg/dl (0.2-1.3) 08/10/24 18:52
AST 17 U/L (14-36) 08/10/24 18:52
ALT 14 U/L (0-35) 08/10/24 18:52
Alkaline Phosphatase 49 U/L (38-126) 08/10/24 18:52
Troponin I < 0.012 ng/ml 08/10/24 18:52
Data Reviewed
-
CT Scan: Report Reviewed by me
Medical Tests (Nuc Med, Echo, EKG etc): Image Personally Visualized and interpreted
Lab Data: Labs Reviewed by me
Old Records: Reviewed
Impression/Plan
-
IMPRESSION:
88-year-old who has been on anticoagulation for the last 6 months presents to the emergency department with chronic pain and found to have apparent spontaneous arterial hemorrhage. Appears to be hemodynamically significant with episode of
lightheadedness and a transient low blood pressure of 83/67. CT scan findings show contrast extravasation into the hematoma in the posterior medial right consistent with active hemorrhage.
The hemorrhage appears to be from a posterior branch of the right internal iliac artery.
PLAN:
1. Hemorrhage - Spontaneous hemorrhage in setting of anticoagulation. No antiplatelet. No trauma. Hemodynamically significant with ongoing bleeding on CT scan.
- admit to icu,
- keep patient non-mobile and supine
- type and screen, transfusing 4 factor PCC,
- trend h/h q 6 hours, transfuse hemoglobin < 7 or for significant acute blood loss
- holding anticoagulation for now
- IR consult.
2. AFIB - Patient with paroxysmal afib in setting of flu infection on apixaban.
- her CHADS2 is 4, she meets criteria for full dose anticoagulation. Holding apixaban for now. Decision to continue at current dose or half dose after achieving complete hemostasis and in conjunction with cardiology. She does not want invasive
procedures
- holding diltiaem in setting of hypotension
- telemetry for now
NPO for now pein
[2024-08-10 20:52] LABS: % Basophils 0.3 % (0-2); % Eosinophils 0.1 % (0-6); % Immature Granulocytes 0.5 % (0-0.5); % Lymphocytes 8.8 % (20.5-51.1); % Monocytes 5.9 % (1.7-9.3); % Neutrophils 84.4 % (42.2-75.2); Absolute Immature Granulocytes 0.1 10^3/uL (0-0.05); Absolute Lymphocytes 1.1 10^3/uL (1.2-3.4); Absolute Monocytes 0.7 10^3/uL (0.1-0.6); Absolute Neutrophils 10.2 10^3/uL (1.4-6.5); Hematocrit 30.8 % (37.0-47.0); Hemoglobin 10.5 g/dL (12.0-16.0); Mean Corp Hgb Conc. 34.1 g/dL (33.0-37.0); Mean Corpuscular Hgb 31.9 pg (27.0-31.0); Mean Corpuscular Volume 93.6 fL (81.0-99.0); Mean Platelet Volume 10.1 fL (7.4-10.4); Nucleated Red Blood Cells % 0 %; Platelet Count 160 10^3/uL (130-400); Red Blood Cell Count 3.29 10^6/uL (4.20-5.40); Red Cell Dist. Width 12.7 % (11.5-14.5); White Blood Cell Count 12.1 10^3/uL (4.8-10.8)
[2024-08-10] MEDS: OFIRMEV 1000 MG IV (21:04)
[2024-08-10] MEDS: KCENTRA 60 UNIT IV (21:11)
--- NOTE | 2024-08-10 21:30 | EDRN ---
patient to receive [facility] 1591 units. medication received from pharmacy, medication hung and dosage checked with second rn. medication unable to be scanned into MAR. Pharmacy called and made aware of situation. Dr Paerson at bedside and made
aware of situation, [facility] infused. pharmacy technician per diem at bedside to help resolve meditech and MAR issue, unable to resolve issue due to hard stop on medicaton from [employer]. Medication given but unable to be documented in MAR, infused from 21:11-21:19.
Pharmacy and Dr. Pearson made aware.
[2024-08-10 21:36] LABS: APTT 27.1 Sec (23.4-35.0); INR 1.38; PT 17.1 Sec (11.4-14.6)
[2024-08-10 21:47] LABS: Fibrinogen 283 MG/DL (199-459)
--- NOTE | 2024-08-10 23:14 | W.PN.UPDATE ---
Update Note
Progress Note Update
Procedure: R internal iliac and inferior gluteal artery arteriograms
- initial images showed faint abnormal blush of contrast arising from the distal inferior gluteal artery corresponding site of extrav on CTA
- selective arteriograms of inferior gluteal artery showed active bleed arising from a small side branch which was subsequently selected and embolized.
- Pt became symptomatic and with increasing pain during procedure. Arteriograms may have temporarily exacerbated bleeding.
- Final images showed cessation of bleed with no other abnormal foci identified.
- Post orders in place. R leg flat for 3 hours. 0.2 mg dilaudid IV given for pain.
[2024-08-11] VITALS (17 sets, daily range): BP systolic 91–141; BP diastolic 46–75; BMI 29.3
--- NOTE | 2024-08-11 00:14 | PTCARENOTE ---
admitted to 3358 icu- blood transfusing post irad. gave order to have pt lie flat with leg straight until 023- pt complies- ax3 sinus bp wnl- rt going dsg c/d/i. good rt DP and PT pulse- received Dilaudid in irad and pt expresses relief. no /s/s
of transfusion reaction. bilateral peripheral iv's intact. poc reviewed.
[2024-08-11] MEDS: KCENTRA IV (00:24)
[2024-08-11] MEDS: D5/0.45%NACL 1000 IV (00:40)
--- NOTE | 2024-08-11 01:04 | PTCARENOTE ---
prbc's complete- n s/s of transfusion reaction- pt remains flat with leg straight- sinus bp wnl afebrile. rt groin dsg cdi. no hematoma
[2024-08-11 02:53] LABS: Hematocrit 28.5 % (37.0-47.0); Hemoglobin 9.9 g/dL (12.0-16.0)
[2024-08-11 02:56] LABS: Blood Urea Nitrogen 20 mg/dl (7-17); Calcium 8.1 mg/dl (8.4-10.2); Carbon Dioxide 21 mmol/L (22-30); Chloride 105 mmol/L (98-107); Estimated Creatinine Clearance 42 ml/min; Glucose 140 mg/dl (70-99); Potassium 4.5 mmol/L (3.5-5.1); Sodium 138 mmol/L (135-145); eGFR > 60.00
[2024-08-11 05:16] LABS: INR 1.19; PT 15.1 Sec (11.4-14.6)
[2024-08-11 05:17] LABS: APTT 28.1 Sec (23.4-35.0); Fibrinogen 257 MG/DL (199-459); Hematocrit 28.6 % (37.0-47.0); Hemoglobin 9.8 g/dL (12.0-16.0); Mean Corp Hgb Conc. 34.3 g/dL (33.0-37.0); Mean Corpuscular Hgb 31.8 pg (27.0-31.0); Mean Corpuscular Volume 92.9 fL (81.0-99.0); Mean Platelet Volume 10.7 fL (7.4-10.4); Platelet Count 134 10^3/uL (130-400); Red Blood Cell Count 3.08 10^6/uL (4.20-5.40); Red Cell Dist. Width 14.1 % (11.5-14.5); White Blood Cell Count 7.3 10^3/uL (4.8-10.8)
[2024-08-11 05:29] LABS: Blood Urea Nitrogen 19 mg/dl (7-17); Calcium 8.3 mg/dl (8.4-10.2); Carbon Dioxide 23 mmol/L (22-30); Chloride 104 mmol/L (98-107); Estimated Creatinine Clearance 42 ml/min; Glucose 139 mg/dl (70-99); Magnesium 1.8 mg/dl (1.6-2.3); Phosphorus 4.1 mg/dl (2.5-4.5); Potassium 4.5 mmol/L (3.5-5.1); Sodium 137 mmol/L (135-145); eGFR > 60.00
[2024-08-11] MEDS: CRESTOR 10 MG PO (08:03)
--- NOTE | 2024-08-11 08:33 | PTCARENOTE ---
Dr. Card here to assess patient. Patient is AAOx3, pleasant, cooperative. She is on room air, sinus on monitor hx of afib. Patient has purewick in place, is ordered regular diet. SCDs ordered but off currently. Pulses palpable in right
foot. IVF running through left AC at 75.hr. Will review orders. call kim within reach.
--- NOTE | 2024-08-11 08:43 | W.PN.HOSP.TC ---
Today's Communication/Plan
-
consult cards
consult vascular
possible downgrade to tele
Assessment / Plan
Assessment / Plan
pt is an 88 year old female
acute spontaneous Hemorrhage exacerbated by Eliquis--No trauma. Hemodynamically significant with ongoing bleeding on CT scan--apprec IR for embolization--consult vascular for opinion--HGB stable--leg softer and less pain--consult cards for
anticoagulation opinion--s/p 1 pRBC
paroxysmal atrial fibrillation --on Eliquis (pt said had once when she had the FLU)-- Eliquis on hold--cardizem on hold
HLD--rosuvastatin
depression -- citalopram
code status -- FULL CODE
Anticipated Discharge: 24 - 48 hours
Subjective/Interval History
-
Date of Service: August 11, 2024
pt leg feels much better
Objective Data
-
Labs:
Laboratory Results
08/10/24 08/11/24 08/11/24
20:44 02:35 04:46
WBC 12.1 H 7.3
Hgb 10.5 L 9.9 L 9.8 L
Hct 30.8 L 28.5 L 28.6 L
Plt Count 160 134
PT 17.1 H 15.1 H
INR 1.38 1.19
APTT 27.1 28.1
Sodium 138 137
Potassium 4.5 4.5
Chloride 105 104
Carbon Dioxide 21 L 23
BUN 20 H 19 H
Creatinine 0.9 0.9
Glucose 140 H 139 H
Calcium 8.1 L 8.3 L
08/11/24 08/11/24 08/11/24
08:00 11:00 14:00
WBC
Hgb Cancelled Pending Cancelled
Hct Cancelled Pending Cancelled
Plt Count
PT
INR
APTT
Sodium
Potassium
Chloride
Carbon Dioxide
BUN
Creatinine
Glucose
Calcium
08/11/24 08/11/24 08/11/24
17:00 20:00 23:00
WBC
Hgb Pending Cancelled Pending
Hct Pending Cancelled Pending
Plt Count
PT
INR
APTT
Sodium
Potassium
Chloride
Carbon Dioxide
BUN
Creatinine
Glucose
Calcium
Vital Signs:
max temp for 24 hours
08/10/24
13:22
Temp 98.5 F
Vital Signs
Temp Pulse Resp BP Pulse Ox
97.8 F 82 17 120/53 94
08/11/24 07:00 08/11/24 06:09 08/11/24 06:09 08/11/24 06:09 08/11/24 06:00
I&O
08/10/24 08/11/24 08/12/24
06:59 06:59 06:59
Intake Total 975 / 1050 150 / 150
Output Total 400 / 400
Balance 575 / 650 150 / 150
Review of Systems
-
All other systems: Reviewed and negative
Musculoskeletal: Reports Other (leg selling and pain improved)
Physical Exam
-
General: Well Developed, Well Nourished and No Apparent Distress
HEENT: Normocephalic and Atraumatic
Respiratory: Clear to Auscultation; Negative Wheezes or Rhonchi
Cardiac: Regular Rhythm (with periods of ectopy)
GI: Soft, Nontender, Nondistended and Normal Bowel Sounds
Musculoskeletal: No Clubbing, No Cyanosis and No Edema
Neuro: Awake and Alert
--- NOTE | 2024-08-11 09:20 | CM ---
CM following re: discharge planning.
Reviewed pt's chart, met with pt and pt's daughter Blanca at bedside.
Pt is an 88 year old female, admitted with primary dx of Hemorrhage.
Pt reports she lives with at [facility] [place], no steps, has 2 supportive daughters. Pt described herself as independent in all areas [employer]. No DME, VN or SNF history. Pt expressed her desire to return back home at
discharge with family support.
PCP: Faith Carrera
Pharmacy: [facility]
D/C plan: home with anticipated no needs. Family to transport at discharge.
CM will follow with discharge plan updates as hospitalization progresses
--- NOTE | 2024-08-11 09:23 | PTCARENOTE ---
Fluids stopped. regular diet ordered. Vascular surgery to follow, downgrade to tele status.
--- NOTE | 2024-08-11 09:51 | CON.VAS ---
Consultation
Consultation Request
Performing Provider: Swapnil
Reason for Consultation: Right thigh hematoma
Medical History
-
Chief Complaint: right thigh pain- resoved
History of Present Illness:
88-year-old female with a past medical history of atrial fibrillation on anticoagulation with Eliquis, hyperlipidemia who presented to the ER with acute onset of right hip pain. CT abdomen/pelvis showed contrast extravasation into the hematoma in
the posterior medial right consistent with active extravasation. IR successfully embolized. Vascular consult to evaluate hematoma right leg. Patient known to our service. 88-year-old female with spontaneous right thigh hematoma. No trauma. No
antecedent event except that she thought she turned the wrong way right before. She is on Eliquis for A-fib. Status post now embolization of distal right internal iliac/inferior gluteal artery bleeding site. Patient notes no pain currently at
rest. No significant discomfort. No weakness in the leg. No numbness in the leg. On exam, she is awake and alert. She is in no acute distress. She is in good spirits. Her abdomen is soft. Her right groin puncture site is flat. Right thigh
to deeper palpation she does have a slight fullness but it is soft. Compartments are all soft. She is not significantly tender, minimally in the posterior thigh muscle compartments. Foot is warm with palpable pedal pulse. Motor/sensory function
in the right lower extremity completely intact.
Past Medical History
Past Medical History: Renal Failure (CKD 3)
Social History
Tobacco: Non-Smoker
Alcohol: None
Personal:
Living: With Family
Employment: Retired
Family History
Family History: Reviewed & Not Pertinent
Allergies / Home Medications
Allergy/AdvReac Type Severity Reaction Status Date / Time
No Known Allergies Allergy Verified 08/10/24 13:22
�Medication �Instructions �Recorded �Confirmed �Type
acetaminophen 650 mg 1,300 mg PO BID Pain 02/15/24 08/10/24 History
tablet,extended release
cholecalciferol (vitamin D3) 25 25 mcg PO DAILY Supplement 02/15/24 08/10/24 History
mcg (1,000 unit) tablet
citalopram 20 mg tablet 20 mg PO DAILY depression/anxiety 02/15/24 08/10/24 History
coenzyme Q10 100 mg capsule 100 mg PO DAILY Supplement 02/15/24 08/10/24 History
(CoQ-10)
fluticasone propionate 50 1 spray intranasal DAILYPRN PRN 02/15/24 08/10/24 History
mcg/actuation nasal congestion
spray,suspension
inulin 2 gram chewable tablet 4 g PO DAILYPRN PRN constipation 02/15/24 08/10/24 History
(Fiber Gummies)
apixaban 5 mg tablet (Eliquis) 5 mg PO BID #60 tabs 02/16/24 08/10/24 Rx
diltiazem HCl 120 mg 120 mg PO DAILY #30 caps 02/16/24 08/10/24 Rx
capsule,extended release 24 hr
(Cartia XT)
calcium carbonate (Calcium 600) 600 mg PO DAILY Supplement 08/10/24 08/10/24 History
carboxymethylcellulose sodium 0.5 1 drp BOTH EYES BIDPRN PRN dry eyes 08/10/24 08/10/24 History
% eye drops (Refresh Tears)
rosuvastatin 10 mg tablet 10 mg PO DAILY High Cholesterol 08/10/24 08/10/24 History
Physical Exam
Vital Signs
Temp Pulse Resp BP Pulse Ox
98.0 F 95 22 104/65 97
08/11/24 11:00 08/11/24 09:01 08/11/24 09:01 08/11/24 09:01 08/11/24 09:01
Lab Results
08/11/24 04:46
Troponin I < 0.012 ng/ml 08/10/24 18:52
Physical Exam
General: No Apparent Distress
HEENT: Normocephalic and Atraumatic
Respiratory: Non Labored Respirations
Cardiac: Negative JVD
GI: Soft and Non Tender
Musculoskeletal: No Clubbing, No Cyanosis and No Edema
Skin: Warm and Other (Right thigh slight fullness but soft)
Neuro: Awake, Alert and Oriented
Psych: Calm
Pulses: Bilateral Femoral: +2 and Bilateral Dorsalis Pedis: +2
Assessment / Plan
-
Plan/ Spontaneous right proximal thigh hematoma/bleed. Status post embolization successfully. No indication for evacuation hematoma at this time. There is no expansion, no evidence of neurovascular compression, no skin changes. Will sign off.
Please call with questions.
Data Reviewed
-
Labs: Labs Reviewed by me
--- NOTE | 2024-08-11 10:12 | CON.CAR ---
Addendum entered and electronically signed by Bailee Benton DO 08/11/24 12:33:
I saw and examined the patient.
The Inside Sales Advisor's note was reviewed and I agree with the note.
Comment: Patient seen and examined with at bedside. She is well-known to me from outpatient setting. Zulema is an 88-year-old female with past medical history of emphysema, Diabetes, pulmonary hypertension, hyperlipidemia who was diagnosed
with new atrial fibrillation in the setting of acute influenza 01/2024. She was started on oral Cardizem and Eliquis. She was symptomatic with her episode of A-fib and felt her heart racing. She reports no known recurrences of atrial fibrillation
since that time. Yesterday she states she had gotten up from a kneeling position and noted right hip and groin pain. She also reported associated dizziness. While in the ER with standing she was hypotensive and presyncopal. Head CT was negative.
She underwent CT of the abdomen and pelvis which showed evidence of hemorrhage of right internal iliac artery which was embolized in IR. Cardiology consulted for assistance with anticoagulant management. She is in sinus rhythm.
General: No acute distress, AAOX3
Neck: Negative JVD
Heart: Regular, positive S1/S2, , No murmur
Lungs: CTA b/l, negative wheezes/rales/rhonchi
Abd: Positive BS, NT/ND, neg rebound/rigidity/guarding
Ext: Negative cyanosis/clubbing/edema. Right groin site without hematoma or ecchymosis.
Neuro: nonfocal
Plan:
Spontaneous groin bleeding status post right internal iliac and inferior gluteal artery angiograms with IR 08/10/2024 with active bleed arising from a small sidebranch of the inferior gluteal artery which was subsequently selected and embolized.
-Patient had been on Eliquis anticoagulation for history of atrial fibrillation in January 2024 in the setting of influenza A infection
-Status post Kcentra in the emergency department
-Hemoglobin on admission 11.6, currently 9.8 this morning. Previously as an outpatient normal ranging 13.8�14
-Status post 1 unit of packed red blood cells
-Hemodynamically stable with improved groin pain.
-Activity restrictions and follow-up as per primary
-No plan to resume anticoagulation at this time
History of PAF with an episode of atrial fibrillation in the setting of influenza A in January 2024 without known recurrences
-Anticoagulation with Eliquis discontinued on admission without plan to resume at this time
-Plan for Linq monitor implant today for arrhythmia monitoring
-Resume outpatient diltiazem CD120 daily once blood pressures stable
Dyslipidemia on rosuvastatin�continue.
Outpatient cardiac follow-up to be arranged
Will sign off, recall if needed
Original Note:
Consultation
Consultation Request
Date/Time Consultation Performed: 08/11/24
Requesting Provider: Dr. Ablright
Performing Provider: Mar Chavez PA-C for Dr. Benton
Reason for Consultation: bleed on OAC
Medical History
-
Chief Complaint: hip pain
History of Present Illness:
Patient is an 88-year-old female with past medical history of emphysema, Diabetes, pulmonary hypertension, hyperlipidemia who was diagnosed with new atrial fibrillation in the setting of acute influenza 01/2024. She was started on oral Cardizem and
Eliquis. She was symptomatic with her episode of A-fib and felt her heart racing. She reports no known recurrences of atrial fibrillation since that time. Yesterday she states she had gotten up from a kneeling position and noted right hip and
groin pain. She also reported associated dizziness. While in the ER with standing she was hypotensive and presyncopal. Head CT was negative. She underwent CT of the abdomen and pelvis which showed evidence of hemorrhage of right internal iliac
artery which was embolized in IR. Cardiology consulted for assistance with anticoagulant management. She is in sinus rhythm.
PMH:
PAF in setting of influenza 01/2024 without known recurrences
Chronic anticoagulation with Eliquis
Emphysema
Diabetes
Pulmonary hypertension
Dyslipidemia
Chronic back pain with prior lumbar laminectomy 2018
Anxiety
Past Medical History
Past Medical History: Other (in HPI)
Social History
Tobacco: Former Smoker (remote)
Alcohol: Occasional
Personal:
Living: With Family
Family History
Family History: CAD, Cancer and Hypertension
Allergies / Home Medications
Allergy/AdvReac Type Severity Reaction Status Date / Time
No Known Allergies Allergy Verified 08/10/24 13:22
�Medication �Instructions �Recorded �Confirmed �Type
acetaminophen 650 mg 1,300 mg PO BID Pain 02/15/24 08/10/24 History
tablet,extended release
cholecalciferol (vitamin D3) 25 25 mcg PO DAILY Supplement 02/15/24 08/10/24 History
mcg (1,000 unit) tablet
citalopram 20 mg tablet 20 mg PO DAILY depression/anxiety 02/15/24 08/10/24 History
coenzyme Q10 100 mg capsule 100 mg PO DAILY Supplement 02/15/24 08/10/24 History
(CoQ-10)
fluticasone propionate 50 1 spray intranasal DAILYPRN PRN 02/15/24 08/10/24 History
mcg/actuation nasal congestion
spray,suspension
inulin 2 gram chewable tablet 4 g PO DAILYPRN PRN constipation 02/15/24 08/10/24 History
(Fiber Gummies)
apixaban 5 mg tablet (Eliquis) 5 mg PO BID #60 tabs 02/16/24 08/10/24 Rx
diltiazem HCl 120 mg 120 mg PO DAILY #30 caps 02/16/24 08/10/24 Rx
capsule,extended release 24 hr
(Cartia XT)
calcium carbonate (Calcium 600) 600 mg PO DAILY 08/10/24 08/10/24 History
carboxymethylcellulose sodium 0.5 1 drp BOTH EYES BIDPRN PRN dry eyes 08/10/24 08/10/24 History
% eye drops (Refresh Tears)
rosuvastatin 10 mg tablet 10 mg PO DAILY 08/10/24 08/10/24 History
Review of Systems
-
History Source: Patient and Family
All other systems: Negative unless noted
Physical Exam
Vital Signs
Temp Pulse Resp BP Pulse Ox
97.8 F 95 22 104/65 97
08/11/24 07:00 08/11/24 09:01 08/11/24 09:01 08/11/24 09:01 08/11/24 09:01
Lab Results
08/11/24 04:46
Troponin I < 0.012 ng/ml 08/10/24 18:52
Physical Exam
General: No Apparent Distress, Comfortable and Other (sitting in chair)
HEENT: Normocephalic, Anicteric and Moist Mucous Membranes
Respiratory: Clear and Non Labored Respirations
Cardiac: S1/S2 and Regular Rhythm
GI: Soft, Non Tender, Non Distended and Normal Bowel Sounds
Musculoskeletal: No Clubbing, No Cyanosis and No Edema
Skin: Warm and Dry
Neuro: AO x 3
Impression / Plan
-
Primary Hat Brim And Crown Laminating Operator: Dr. Benton
Assessment:
R hip pain
Hypotension
Acute spontaneous hemorrhage of R internal iliac artery s/p embolization in IR 08/10/24
PAF in setting of influenza 01/2024 without known recurrences
Chronic anticoagulation with Eliquis
Emphysema
Diabetes
Pulmonary hypertension
Dyslipidemia
Chronic back pain with prior lumbar laminectomy 2018
Anxiety
ECHO 05/03/24: EF 55 to 60%, MAC, mild MR, aortic sclerosis, normal right heart with PAP 35 to 38 mmHg, physiologic pericardial effusion
Plan:
-Patient presented with right hip pain and dizziness. Found to be hypotensive in the ER. Imaging with evidence of acute spontaneous hemorrhage of right internal iliac artery status post embolization in IR 08/10/2024
-Feeling improved today
-Cardiology consulted for anticoagulant management in setting of bleed
-She had isolated episode of atrial fibrillation in the setting of acute influenza in January without known recurrences. In sinus rhythm on review of telemetry
-At this point would hold off on resuming anticoagulation. Discussed options for monitoring of rhythm as outpatient, and she is agreeable to Linq implant today
-If blood pressure trends continue to improve, would consider resuming outpatient diltiazem 120 mg daily in a.m.
-Will arrange outpatient cardiac follow-up
-Discussed with family at bedside
Data Reviewed
-
EKG: Tracing Personally Visualized and interpreted
CT Scan: Report Reviewed by me
Medical Tests (Nuc Med, Echo etc): Report Reviewed by me
Labs: Labs Reviewed by me
Old Records: Reviewed
--- NOTE | 2024-08-11 10:24 | W.PN.GENERIC ---
Assessment / Plan
-
88 yo female admitted with acute gluteal artery bleed that underwent IR embolization yesterday
Continue to trend H&H
I spent 45 minutes reviewing medical records, laboratory studies and relevent images as well as evaluating and examining the pateint, documenting, counseling the patient and her family and reviewing results and expected outcomes of the procedure
Physician Progress Note
Subjective
This is an 88-year-old female with a past medical history significant for atrial fibrillation on Eliquis since January and hyperlipidemia who presented to the ER for evaluation of right hip and groin pain after getting up from a kneeling position at
home. She denies any fall or trauma. She was evaluated for this in the ER and was getting ready for discharge when she became hypotensive, dizzy and presyncopal. She had further testing and was found to have a right inferior gluteal artery bleed.
She was brought to IR where she underwent A-gram and embolization. Since the procedure she report no further dizziness.
She denies fever, chills, CP, palpitations, syncope, SOB, flank pain, hematuria, abdominal pain, nausea or vomiting
Medical History
Past Medical History
Atrial fibrillation, HTN, Hypercholesterolemia CKD 3
Past Surgical History:
Knee replacement
Social History
Tobacco: Non-smoker
Alcohol: None
Drug: None
Personal:
Living: With Family
Employment: Retired
Family History
Family History: Not pertinent
Allergies
Allergy/AdvReac Type Severity Reaction Status Date / Time
No Known Allergies Allergy Verified 08/10/24 13:22
Home Medications
acetaminophen 650 mg tablet,extended release 1,300 mg PO BID, cholecalciferol (vitamin D3) 25 mcg (1,000 unit) tablet 25 mcg PO DAILY, citalopram 20 mg tablet 20 mg PO DAILY, coenzyme Q10 100 mg capsule (CoQ-10) 100 mg PO DAILY, fluticasone
propionate 50 mcg/actuation nasal spray,suspension 1 spray intranasal DAILY, Fiber Gummies 4 g PO DAILYPRN PRN, loperamide 2 mg capsule 2 mg PO DAILYPRN PRN, rosuvastatin 5 mg tablet 5 mg PO DAILY, apixaban 5 mg tablet (Eliquis) 5 mg PO BID,
diltiazem HCl 120 mg capsule,extended release 24 hr (Cartia XT) 120 mg PO DAILY
Objective
Vital Signs
Temp Pulse Resp BP Pulse Ox
97.8 F 95 22 104/65 97
08/11/24 07:00 08/11/24 09:01 08/11/24 09:01 08/11/24 09:01 08/11/24 09:01
Lab Results
08/11/24 04:46
This is a WNWD 88 yo female in NAD sitting in the chair. Color is good. SKin is warm and dry. Heart is regular. Lungs are CTA. Abdomen is soft and nontender with bowel sounds. No CVAT. Right groin dressing is CDI. No hemtoma. Palpable
inguinal and pedal pulses. No calf swelling or tenderness. No gluteal hematoma. Ambulates independently.
--- NOTE | 2024-08-11 10:37 | CON.INTV ---
Consultation
Consultation Request
Date/Time Consultation Requested: 08/01/2024
Date/Time Consultation Performed: 08/01/2024
Requesting Provider: Dr. Malcolm
Performing Provider: Dr. Angel Albright
Reason for Consultation: Acute spontaneous hemorrhage/symptomatic anemia
Medical History
-
History of Present Illness:
88-year-old woman with past medical history significant for atrial fibrillation on Eliquis since January 2024, hyperlipidemia who presented to the emergency room with acute onset right hip pain. She was found to be hypotensive in the emergency room.
Part of the evaluation including a CT abdomen pelvis demonstrated contrast extravasation in the pelvic region with an associated hematoma.
Hemorrhage appears to be from posterior branch of the right iliac artery.
Patient denies any trauma, she was doing her usual activities. No prior history of bleeding.
Hemoglobin was down to 9.7.
Emergently was evaluated by interventional radiology, angiogram and embolization occurred overnight. Bleeding appeared to be arising from a small sidebranch of the inferior gluteal artery.
Patient received 1 unit of packed red blood cells.
In the critical care unit, asymptomatic. Not tachycardic. Normotensive. Denies any significant pain or shortness of breath.
Denies lightheadedness.
Past Medical History
Past Medical History: Other (See assessment and plan)
Social History
Tobacco: Non-smoker
Alcohol: None
Drug: None
Personal:
Living: With Family
Employment: Retired
Family History
Family History: Reviewed & Not Pertinent
Allergies / Home Medications
Allergies
Allergy/AdvReac Type Severity Reaction Status Date / Time
No Known Allergies Allergy Verified 08/10/24 13:22
Home Medications
�Medication �Instructions �Recorded �Confirmed �Last Taken �Type
acetaminophen 650 mg 1,300 mg PO BID Pain 02/15/24 08/10/24 08/10/24 History
tablet,extended release
cholecalciferol (vitamin D3) 25 25 mcg PO DAILY Supplement 02/15/24 08/10/24 08/10/24 History
mcg (1,000 unit) tablet
citalopram 20 mg tablet 20 mg PO DAILY depression/anxiety 02/15/24 08/10/24 08/10/24 History
coenzyme Q10 100 mg capsule 100 mg PO DAILY Supplement 02/15/24 08/10/24 08/10/24 History
(CoQ-10)
fluticasone propionate 50 1 spray intranasal DAILYPRN PRN 02/15/24 08/10/24 02/14/24 History
mcg/actuation nasal congestion
spray,suspension
inulin 2 gram chewable tablet 4 g PO DAILYPRN PRN constipation 02/15/24 08/10/24 1 Week Ago History
(Fiber Gummies) ~02/08/24
apixaban 5 mg tablet (Eliquis) 5 mg PO BID #60 tabs 02/16/24 08/10/24 08/10/24 Rx
diltiazem HCl 120 mg 120 mg PO DAILY #30 caps 02/16/24 08/10/24 08/10/24 Rx
capsule,extended release 24 hr
(Cartia XT)
calcium carbonate (Calcium 600) 600 mg PO DAILY 08/10/24 08/10/24 08/10/24 History
carboxymethylcellulose sodium 0.5 1 drp BOTH EYES BIDPRN PRN dry eyes 08/10/24 08/10/24 Unknown History
% eye drops (Refresh Tears)
rosuvastatin 10 mg tablet 10 mg PO DAILY 08/10/24 08/10/24 08/10/24 History
Review of Systems
-
History Source: Patient
All other systems: Negative unless noted
Vitals / Labs / Diagnostic Testing
Vital Signs
Temp Pulse Resp BP Pulse Ox
97.8 F 95 22 104/65 97
08/11/24 07:00 08/11/24 09:01 08/11/24 09:01 08/11/24 09:01 08/11/24 09:01
Lab Data
08/11/24 04:46
Laboratory Results
08/10/24 08/11/24
20:44 04:46
PT 17.1 H 15.1 H
INR 1.38 1.19
APTT 27.1 28.1
Diagnostic Testing:
Physical Exam
-
HEENT: Normocephalic
Cardiovascular: S1/S2
Respiratory: Clear and Non-Labored Respirations
GI: Soft and Non Distended
Neurology: Awake, Oriented, AO x 3 and No Motor Deficits
Skin: Warm, Other (Distal pulses are present.) and Other (Right leg is soft, nontender. No enlarging hematoma noted.)
General: Comfortable
Assessment
-
Spontaneous hemorrhage in the setting of anticoagulation-status post embolization by interventional radiology 08/10/2024-bleeding from the right small branch of the gluteal artery.
Presented with presyncopal episode/hypotension
Acute blood loss anemia-Hemoglobin on admission 11.6-9.8-baseline 14
Condition present prior admission:
Atrial fibrillation-on anticoagulation until this admission-diagnosed January 2024 in the setting of influenza
Chronic kidney disease
Hypertension
Hyperlipidemia
Assessment and plan:
Spontaneous bleeding, status post embolization. See above.
Status post 1 unit of packed red blood cells
Now hemodynamically stable, not tachycardic.
Patient is comfortable
On physical examination right hematoma soft. Distal pulses are present.
Patient appears nontoxic,
-
Will increase activity as tolerated
Continue telemetry monitoring
Monitor H&H
-
Discussed with Dr. Card will consult vascular surgery for opinion whether additional intervention will be needed.
Consulted cardiology for evaluation regarding future of anticoagulation in the setting of atrial fibrillation. Continue to hold for now.
-
Advance diet
Okay to restart outpatient medications other than anticoagulation.
-
Will transfer to telemetry.
Critical care team at this point will sign off. Please call pulmonary if any respiratory issues arise.
-
Imaging reviewed,
CT scan reviewed 08/10/2024:1).There is contrast extravasation into the hematoma in the posterior medial right consistent with active hemorrhage.
The hemorrhage appears to be from a posterior branch of the right internal iliac artery
2). Nonurgent findings include:
-Cholecystectomy
-Bilateral renal cysts
-Diverticuli are present in the colon with no CT evidence of diverticulitis
-Old 60% compression fracture of L3
-Multilevel lumbar degenerative disc disease
Chest x-ray: 08/11/2024: Clear lungs
[2024-08-11] MEDS: CELEXA 20 MG PO (11:33)
--- NOTE | 2024-08-11 12:30 | W.PN.UPDATE ---
Update Note
Progress Note Update
Seen and evaluated prior to her going down for a LINQ procedure. Asked to evaluate regarding hematoma right leg. Seen with ISIDORO Lane. Full consultation to follow. Patient known to me (I have treated her ). 88-year-old female with
spontaneous right thigh hematoma. No trauma. No antecedent event except that she thought she turned the wrong way right before. She is on Eliquis for A-fib. Status post now embolization of distal right internal iliac/inferior gluteal artery
bleeding site. Patient notes no pain currently at rest. No significant discomfort. No weakness in the leg. No numbness in the leg. On exam, she is awake and alert. She is in no acute distress. She is in good spirits. Her abdomen is soft.
Her right groin puncture site is flat. Right thigh to deeper palpation she does have a slight fullness but it is soft. Compartments are all soft. She is not significantly tender, minimally in the posterior thigh muscle compartments. Foot is warm
with palpable pedal pulse. Motor/sensory function in the right lower extremity completely intact. Plan/ Spontaneous right proximal thigh hematoma/bleed. Status post embolization successfully. No indication for evacuation hematoma at this time.
There is no expansion, no evidence of neurovascular compression, no skin changes. Will sign off. Please call with questions.
--- NOTE | 2024-08-11 12:31 | PTCARENOTE ---
Report given to cathlab. Patient taken to director of cardiac cath lab for link patent prosecution paralegal. No changes in assessment. patient written for telemetry status.
--- NOTE | 2024-08-11 13:22 | ITS.CL.IMPLP ---
[employer] - Implant Loop
Implant Loop
Procedure Report:
ILR implant
Date of Procedure: 08/11/2024
Patient : 1935
Procedure: Insertable Loop Recorder Implant. Linq2
Indication: History of atrial fibrillation with recent bleeding event see separate notes
�
Implant: Reveal Linq2: [employer]; Model# [id number]; Serial# [id number]
�
Technique: The patient was prepped and draped in the usual fashion.�Local anesthetic was applied to the left��prepectoral subcutaneous tissue. A subcutaneous pocket was created with blunt dissection. Hemostasis was excellent. The device was placed
in the pocket. The skin was closed with steri-strips. The estimated blood��loss was minimal. There were no complications.
�
Final Programming: FVT 231 30/40 beats
����������������������������������VT 176 16 beats
����������������������������������Asystole 3 sec
����������������������������������Deonte 30 bpm for 4 beats
����������������������������������AF On AF only.
�
Conclusion: Uncomplicated insertable loop implant.
�
Recommendation: Routine wound care.
�
cc: Dr. Bailee Benton
[2024-08-11 14:09] LABS: Hematocrit 29.3 % (37.0-47.0); Hemoglobin 10.2 g/dL (12.0-16.0)
[2024-08-11] MEDS: TYLENOL 1000 MG PO ×2 (14:49→22:18)
--- NOTE | 2024-08-11 20:47 | PTCARENOTE ---
Received patient OOb to chair. AAOx4 and able to make her needs known. Denies pain at this time. Plan of care for the shift reviewed with the patient. Sinus rhythm on the monitor. All pulses are palpable. neurovascular assessment as noted on the
flowsheet. Right groin assessed, no hematoma noted. Site dressing is cdi. SpO2 at 95% on room air. Breath sounds are clear. No cough. Pt ambulated to the bathroom. Gait steady. +BS. The patient is independent in the room. SCDs in place. All needs
are met at this time. Safety measures maintained.
--- NOTE | 2024-08-11 22:39 | PTCARENOTE ---
Patient transported via wheelchair to room 406-2. Remained stable throughout transfer. Pt received by RN at the bedside.
--- NOTE | 2024-08-12 00:07 | PTCARENOTE ---
Patient received from ICU via wheelchair. Received verbal report over the phone. Pt AAOx3, VSS. Independent and can make her needs known. No complaints of pain. All dressings dry and intact. Patient oriented to the room. Call kim is within reach.
[2024-08-12 03:21] VITALS: BP 116/54
[2024-08-12 07:20] VITALS: BP 144/61
[2024-08-12 08:29] LABS: Hematocrit 28.9 % (37.0-47.0); Hemoglobin 9.8 g/dL (12.0-16.0); Mean Corp Hgb Conc. 33.9 g/dL (33.0-37.0); Mean Corpuscular Hgb 31.8 pg (27.0-31.0); Mean Corpuscular Volume 93.8 fL (81.0-99.0); Mean Platelet Volume 10.4 fL (7.4-10.4); Platelet Count 141 10^3/uL (130-400); Red Blood Cell Count 3.08 10^6/uL (4.20-5.40); Red Cell Dist. Width 14.2 % (11.5-14.5); White Blood Cell Count 6.5 10^3/uL (4.8-10.8)
[2024-08-12] MEDS: TYLENOL 1000 MG PO (08:36)
[2024-08-12] MEDS: CRESTOR 10 MG PO (08:36)
[2024-08-12] MEDS: OSCAL CAL 500 500 MG PO (08:36)
[2024-08-12 08:58] LABS: Blood Urea Nitrogen 18 mg/dl (7-17); Calcium 8.8 mg/dl (8.4-10.2); Carbon Dioxide 25 mmol/L (22-30); Chloride 106 mmol/L (98-107); Estimated Creatinine Clearance 42 ml/min; Glucose 82 mg/dl (70-99); Magnesium 2.2 mg/dl (1.6-2.3); Potassium 4.2 mmol/L (3.5-5.1); Sodium 143 mmol/L (135-145); eGFR > 60.00
[2024-08-12 10:09] VITALS: BP 145/72; BP 163/90; PULSE 89; O2SAT 96
--- NOTE | 2024-08-12 10:21 | PTOTSP ---
Patient presents with R hip/buttock pain with no significant mechanism of injury. Patient found to have hematoma from R inf glut artery. Patient underwent embolization on 08/10/24. patient also had a loop implant on 08/11/24. Patient
demonstrates I with all functional mobility within session today. Patient ambulated and completed 1 step independently. Patient notes that she feels fatigued, but denies concerns about going home. patient demonstrates no skilled PT needs at this
time. Will sign off. If situation changes, please reconsult.
[2024-08-12] MEDS: CELEXA 20 MG PO (10:51)
[2024-08-12 11:32] VITALS: BP 114/61
--- NOTE | 2024-08-12 12:46 | W.PN.HOSP.TC ---
Today's Communication/Plan
-
d/c
Assessment / Plan
Assessment / Plan
pt is an 88 year old female
acute spontaneous Hemorrhage exacerbated by Eliquis--No trauma. Hemodynamically significant with ongoing bleeding on CT scan--apprec IR for embolization, bleeding stopped--apprec vascular--HGB stable--leg softer and less pain--apprec cards for
anticoagulation opinion--s/p 1 pRBC
paroxysmal atrial fibrillation --on Eliquis (pt said had once when she had the FLU)-- Eliquis on hold--cardizem on hold
HLD--rosuvastatin
depression -- citalopram
code status -- FULL CODE
Anticipated Discharge: Today
Subjective/Interval History
-
Date of Service: August 12, 2024
pt without c/o--waiting to go home
Objective Data
-
Labs:
Laboratory Results
08/12/24
06:52
WBC 6.5
Hgb 9.8 L
Hct 28.9 L
Plt Count 141
Sodium 143
Potassium 4.2
Chloride 106
Carbon Dioxide 25
BUN 18 H
Creatinine 0.9
Glucose 82
Calcium 8.8
Vital Signs:
max temp for 24 hours
08/11/24
20:10
Temp 98.4 F
Vital Signs
Temp Pulse Resp BP Pulse Ox
98.1 F 74 18 114/61 99
08/12/24 11:32 08/12/24 11:32 08/12/24 11:32 08/12/24 11:32 08/12/24 11:32
I&O
08/11/24 08/12/24 08/13/24
06:59 06:59 06:59
Intake Total 975 / 1050 1979
Output Total 400 / 400
Balance 575 / 650 1979
Review of Systems
-
All other systems: Reviewed and negative
Physical Exam
-
General: Well Developed, Well Nourished and No Apparent Distress
HEENT: Normocephalic and Atraumatic
Respiratory: Clear to Auscultation; Negative Wheezes or Rhonchi
Cardiac: Regular Rhythm and S1/S2; Negative Murmur
GI: Soft, Nontender, Nondistended and Normal Bowel Sounds
Musculoskeletal: No Clubbing, No Cyanosis and No Edema
Neuro: Awake
Psych: Calm
[2024-08-12 21:36] LABS: Thrombin Time Results 18.5 sec (14.7-19.5)
--- NOTE | 2024-08-13 07:54 | W.DCSUMMARY ---
Discharge Summary
Discharge Data
Date of Admission: 08/10/24
Date of Discharge: 08/12/24
-
Pending Results: No
Hospital Course
Primary care physician : Faith Carrera
Principal Discharge diagnosis : Acute spontaneous hemorrhage of the left lower extremity exacerbated by Eliquis
Chronic Discharge diagnosis : Paroxysmal atrial fibrillation, hyperlipidemia, depression
Hospital Course : Patient was an 88-year-old female with presumed paroxysmal atrial fibrillation anticoagulated with Eliquis who presented with acute onset of right hip pain. She was found to be hypotensive while in the emergency department. She
denied any trauma or accident and got up from a kneeling position and then started having right hip and groin pain. There was no radiation down the legs, she denied back pain, she denied dysuria or hematuria. She had been on Eliquis since January.
She denied taking any other medications including aspirin or nonsteroidal medications. Initial evaluation was unremarkable however she stood up to return home and had a presyncopal episode with lightheadedness and dizziness. Blood pressure dropped
to 83/67 she was given IV fluids and once placed in the supine position and blood pressure improved to 101/50. CAT scan of her head was negative. CAT scan of the abdomen and pelvis showed contrast extravasation into a hematoma in the posterior
medial right leg consistent with active hemorrhage. It appeared to be a branch of the right internal iliac artery. Patient was admitted.
Problem #1: Acute spontaneous hemorrhage of the left lower extremity exacerbated by Eliquis resulting in acute blood loss anemia. Patient was admitted to the intensive care unit. IR was consulted for embolization and bleeding had stopped.
Vascular surgery was consulted for an opinion and there was no need for any further surgical intervention. Cardiology was also consulted for an opinion with anticoagulation. Eliquis has been on hold and Cardizem has been on hold. Eliquis should
be restarted at the discretion of cardiology once they determine whether or not long-term anticoagulation is needed. She did have a loop recorder put in prior to discharge. Cardizem will be restarted upon discharge as well. She received 1 unit of
packed red blood cells during her hospitalization. Hemoglobin on admission was 11.6 which stabilized at 9.8.
Problem #2: All other medical issues. These include Paroxysmal atrial fibrillation, hyperlipidemia, depression. These medical issues were stable during her hospitalization. Medications were continued as able. Eliquis was on hold.
Patient is stable for discharge home at this time. If there are any questions regarding this dictation or her hospital stay, please not hesitate to call. Our office number is [phone].
Important imaging findings :
CT SCAN ABDOMEN/PELVIS IMPRESSION:
1).There is contrast extravasation into the hematoma in the posterior medial right consistent with active hemorrhage.
The hemorrhage appears to be from a posterior branch of the right internal iliac artery
2). Nonurgent findings include:
-Cholecystectomy
-Bilateral renal cysts
-Diverticuli are present in the colon with no CT evidence of diverticulitis
-Old 60% compression fracture of L3
-Multilevel lumbar degenerative disc disease
Procedure findings :
IMPRESSION:
Successful coil embolization of focus of active bleeding arising from a branch of the distal right inferior gluteal artery.
Discharge Plan
-
Patient Disposition: Home (Routine Discharge)
Discharge Diagnosis/Procedures: 08/11 Loop recorder implant, acute spontaneous hemorrhage into the leg exacerbated by Eliquis, paroxysmal atrial fibrillation, hyperlipidemia, depression
Condition: Good
Diet: As tolerated and Regular
Activity: As tolerated
Driving Restrictions: Not until seen by your Dr
Bathing Restrictions: After dressing removed
Stand Alone Forms: DC Inst - Implanted Device
Referrals:
[facility] [Provider Group] - 08/23/24 10:20 am (Incision check appointment post Loop recorder implant)
Faith Carrera MD [Family Provider] - in less than 1 week
Prescriptions:
New
acetaminophen [Tylenol Extra Strength] 500 mg Tablet
1,000 mg PO TID Qty: 0 0RF
Continued
citalopram 20 mg Tablet
20 mg PO DAILY
fluticasone propionate 50 mcg/actuation [place],Suspension
1 spray INTRANASAL DAILYPRN PRN (Reason: congestion)
coenzyme Q10 [CoQ-10] 100 mg Capsule
100 mg PO DAILY
cholecalciferol (vitamin D3) 25 mcg (1,000 unit) Tablet
25 mcg PO DAILY
Fiber Gummies 2 gram Tablet,Chewable
4 g PO DAILYPRN PRN (Reason: constipation)
calcium carbonate [Calcium 600] 600 mg calcium (1,500 mg) Tablet
600 mg PO DAILY
carboxymethylcellulose sodium [Refresh Tears] 0.5 % Drops
1 drp BOTH EYES BIDPRN PRN (Reason: dry eyes)
rosuvastatin 10 mg Tablet
10 mg PO DAILY
Held
diltiazem HCl [Cartia XT] 120 mg Capsule,Extended Release 24hr
120 mg PO DAILY Qty: 30 0RF
Hold Instructions: restart Tuesday 08/14
Eliquis 5 mg Tablet
5 mg PO BID Qty: 60 0RF
Hold Instructions: do not start until told to do so by cardiology
Discontinued
acetaminophen 650 mg Tablet Extended Release
1,300 mg PO BID
Discharge Orders:
Discharge Patient (As Directed); Ordered 08/12/24
Ordered By: Alejandra Card
Discharge Date and Time
Discharge Date/Time: 08/12/24 15:00
Print Language: MAORI
== END 2024-08-12 15:00 | disposition home or self-care (01) | DRG 982 ==
LOC: 4 EAST ACU 21:29
PROVIDERS: Internal Medicine Cardiovascular Disease; Nurse Practitioner Family; Radiology Diagnostic Radiology; ADMITTING PHYSICIAN Internal Medicine; ATTENDING PHYSICIAN Internal Medicine; CONSULT PHYSICIAN Internal Medicine Cardiovascular Disease; CONSULT PHYSICIAN Internal Medicine Critical Care Medicine; EMERGENCY PHYSICIAN Emergency Medicine; FAMILY PHYSICIAN Family Medicine
PROC: 30233N1 Transfusion of Nonautologous Red Blood Cells into Peripheral Vein, Percutaneous Approach (ICD-10-PCS; 2024-08-10)
PROC: 0JH602Z Insertion of Monitoring Device into Chest Subcutaneous Tissue and Fascia, Open Approach (ICD-10-PCS; 2024-08-11)
PROC: 04LE3DZ Occlusion of Right Internal Iliac Artery with Intraluminal Device, Percutaneous Approach (ICD-10-PCS; 2024-08-12)
DX: M79.81 Nontraumatic hematoma of soft tissue (principal); D62 Acute posthemorrhagic anemia; D68.32 Hemorrhagic disorder due to extrinsic circulating anticoagulants; T80.818A Extravasation of other vesicant agent, initial encounter; I31.39 Other pericardial effusion (noninflammatory); M48.56XA Collapsed vertebra, not elsewhere classified, lumbar region, initial encounter for fracture; I27.20 Pulmonary hypertension, unspecified; E11.22 Type 2 diabetes mellitus with diabetic chronic kidney disease; I12.9 Hypertensive chronic kidney disease with stage 1 through stage 4 chronic kidney disease, or unspecified chronic kidney disease; N18.30 Chronic kidney disease, stage 3 unspecified; F32.A Depression, unspecified; I08.0 Rheumatic disorders of both mitral and aortic valves; J43.9 Emphysema, unspecified; T45.515A Adverse effect of anticoagulants, initial encounter; M51.369 Other intervertebral disc degeneration, lumbar region without mention of lumbar back pain or lower extremity pain; E78.00 Pure hypercholesterolemia, unspecified; F41.9 Anxiety disorder, unspecified; G89.29 Other chronic pain; I48.0 Paroxysmal atrial fibrillation; K59.00 Constipation, unspecified; M19.90 Unspecified osteoarthritis, unspecified site; N28.1 Cyst of kidney, acquired; I95.9 Hypotension, unspecified; M25.551 Pain in right hip; M54.9 Dorsalgia, unspecified; R68.89 Other general symptoms and signs; Z79.01 Long term (current) use of anticoagulants; Z79.899 Other long term (current) drug therapy; Z87.891 Personal history of nicotine dependence; Z90.49 Acquired absence of other specified parts of digestive tract; Z87.09 Personal history of other diseases of the respiratory system
CPT/HCPCS: 33285; 36247; 37244; 70450; 71045; 72192; 74174; 75736; 76937; 80048; 80053; 83735; 84100; 84484; 85014; 85018; 85025; 85027; 85384; 85610; 85670; 85730; 86850; 86900; 86901; 86920; 93005; 96360; 97116; 97161; 99291; C1764; C1769; J7168; P9016; Q9967

== ENCOUNTER 2024-10-13 13:33 | Inpatient (IN) | payer OTHER, SELFPAY ==
[2024-10-13] VITALS (18 sets, daily range): BP systolic 114–158; BP diastolic 59–97; BMI 25.1
[2024-10-13 11:32] LABS: % Basophils 0.4 % (0-2); % Eosinophils 1.3 % (0-6); % Immature Granulocytes 0.1 % (0-0.5); % Lymphocytes 18.7 % (20.5-51.1); % Monocytes 7.6 % (1.7-9.3); % Neutrophils 71.9 % (42.2-75.2); Absolute Eosinophils 0.1 10^3/uL (0-0.7); Absolute Lymphocytes 1.3 10^3/uL (1.2-3.4); Absolute Monocytes 0.5 10^3/uL (0.1-0.6); Hematocrit 43.4 % (37.0-47.0); Hemoglobin 14.1 g/dL (12.0-16.0); Mean Corp Hgb Conc. 32.5 g/dL (33.0-37.0); Mean Corpuscular Hgb 33.7 pg (27.0-31.0); Mean Corpuscular Volume 103.8 fL (81.0-99.0); Mean Platelet Volume 10.1 fL (7.4-10.4); Nucleated Red Blood Cells % 0 %; Platelet Count 162 10^3/uL (130-400); Red Blood Cell Count 4.18 10^6/uL (4.20-5.40); Red Cell Dist. Width 13.2 % (11.5-14.5)
[2024-10-13 11:37] LABS: Urine Albumin Trace (Neg - Trace); Urine Bilirubin Negative (Negative); Urine Character Clear (Clear); Urine Color Yellow; Urine Glucose Negative (Negative); Urine Ketone Negative (Negative); Urine Leukocyte Trace (Negative); Urine Nitrite Negative (Negative); Urine Occult Blood Negative (Negative); Urine Urobilinogen Negative (Neg - 1+)
[2024-10-13 11:55] LABS: INR 0.99; PT 13.4 Sec (11.4-14.6)
[2024-10-13 11:56] LABS: APTT 25.9 Sec (23.4-35.0); Blood Urea Nitrogen 18 mg/dl (7-17); Calcium 9.5 mg/dl (8.4-10.2); Carbon Dioxide 23 mmol/L (22-30); Chloride 103 mmol/L (98-107); Estimated Creatinine Clearance 38 ml/min; Glucose 139 mg/dl (70-99); Sodium 138 mmol/L (135-145); eGFR > 60.00
[2024-10-13 12:01] LABS: Troponin I 0.019 ng/ml
[2024-10-13 12:13] LABS: Urine Urothelial Cell 0-2 /LPF (FEW)
[2024-10-13 12:14] LABS: Urine Bacteria Few (Negative)
--- NOTE | 2024-10-13 12:30 | ED.GENMED ---
History of Present Illness
General
Chief Complaint: Heart Rate Problem
Source: patient
Exam Limitations: none
Time Seen by Provider: 10/13/24 11:14
Nursing documentation reviewed up to this point in time: agreed with
History of Present Illness
History of Present Illness:
The patient is a pleasant 89-year-old female with a past medical history of atrial fibrillation with a loop recorder, not on anticoagulation due to recent bleed. Patient reports feelings of palpitations that started at around 9 AM this morning and
concerned that she is in A-fib. Paramedics called prior to arrival and stated that she appeared to be in A-fib with heart rate close to 200 when they arrived to assess her. Patient was given 10 mg of Cardizem en route to the ED by paramedics.
Patient states she still feels palpitations. She denies chest pain and shortness of breath.
Past History
Past History
ED Past Medical History: Arrthythmia and HTN
ED Past Surgical History: Cholecystectomy and Orthopedic
Social History
Tobacco: Non-smoker
Alcohol: None
Drug: None
Personal:
Living: with family
Employment: Retired
Family History
Family History: Other
Review of Systems
Review of Systems
Allergies reviewed?: Yes
All Other Systems: ROS reviewed and negative except as documented in HPI and ROS
Constitutional: Reports no symptoms
EENT: Reports no symptoms
Respiratory: Reports no symptoms
Cardiac: Reports palpitations
ABD/GI: Reports no symptoms
: Reports no symptoms
Musculoskeletal: Reports no symptoms
Skin: Reports no symptoms
Neurological: Reports no symptoms
Endocrine: Reports no symptoms
Hematologic/Lymphatic: Reports no symptoms
Psychiatric: Reports no symptoms
Phy Exam
Physical Exam
Physical Exam:
Physical Exam
General: no apparent distress, not acutely ill
Neck: supple. no meningeal signs. normal psoterior pharynx
Heart: Regular, tachycardic
Lungs: no acute respiratory distress. clear bilaterally
Abdomen: normal bowel sounds. not tender. no CVAT
Neuro: alert and oriented. no focal neurological deficits
Skin: no rash
Psychiatric: well kept. interactive and cooperative
Extremities: no edema. no calf tenderness. negative homans. good distal pulses
Course
Orders/Labs/Results
Orders:
Orders
10/13/24 11:05
Electrocardiogram (*1) Urgent
Reason for Study: Tachycardia
EKG- Treatment ONCE
10/13/24 11:22
Basic Metabolic Panel Urgent
Complete Blood Count/With Diff Urgent
PT/INR [Prothrombin Time] Urgent
PTT Urgent
Troponin I Urgent
10/13/24 11:23
Urinalysis Reflex To Culture Urgent
Date Specimen was Collected: 10/13/24
Time Specimen was Collected: 11:21
Urine Microscopic Reflex Cult Urgent
10/13/24 12:34
Potassium Urgent
10/13/24 13:00
Diltiazem 125 mg/125 ml Nss [Cardizem] 125 mg in 125 ml IV PER PROTOCOL
Initial dose in mg/hr, then titrate:: 5
Titrate to keep:: Heart rate 80-100 bpm
Titrate by mg/hr:: 5 mg/hr
Frequency of titrations (minutes):: 15
Maximum dose in mg/hr:: 15
Abnormal Lab Results
10/13/24 10/13/24
11:22 11:23
RBC 4.18 L 10^6/uL
(4.20-5.40)
MCV 103.8 H fL
(81.0-99.0)
MCH 33.7 H pg
(27.0-31.0)
MCHC 32.5 L g/dL
(33.0-37.0)
Lymphocytes % 18.7 L %
(20.5-51.1)
BUN 18 H mg/dl
(7-17)
Glucose 139 H mg/dl
(70-99)
Leukocyte Esterase Rfl Trace A
(Negative)
Urine RBC 3-6 A /HPF
(0-2)
Urine Bacteria (Reflex) Few A
(Negative)
10/13/24 11:22
10/13/24 12:34
Vital Signs
Initial and Last Documented VS:
Initial Vital Signs
Temp Pulse Resp Pulse Ox
97.5 F 112 18 98
10/13/24 11:05 10/13/24 11:05 10/13/24 11:05 10/13/24 11:05
Last Documented Vital Signs
Temp Pulse Resp BP Pulse Ox
97.5 F 107 21 114/80 95
10/13/24 11:05 10/13/24 12:30 10/13/24 12:30 10/13/24 12:00 10/13/24 12:30
MDM/Problems Addressed
Differential Diagnosis Includes:
Sinus tachycardia, A-fib, a flutter
MDM/Problems Addressed:
Patient presents with acute palpitations and tachycardia
Chronic conditions affecting care: Arrhythmia
Acute Exacerbation and/or Progression of Chronic Illness: Arrhythmia
*Pulse Oximetry
Patient hypoxic: no
*EKG
Interpreted by ED Provider?: Yes
Interpretation: abnormal
Rate: tachycardiac
Rhythm: atrial flutter
[place]: left axis deviation
Interval: normal interval
QRS Pattern: normal QRS
Ischemia: non-specific ST changes
*Heavy Mobile Equipment Repairer Interpretation
Rate: tachycardiac
Interpretation: abnormal
Rhythm: atrial flutter
*Critical Care Note
Total Time (30-74mins, 75-104mins- exclusive of procedures): 40 minutes of critical ca
comment:
40 minutes of critical care given to patient including frequent reassessments of her heart rate, reviewing her prior discharge summary, speaking to the patient as well as cardiology
Data Reviewed
Review of Other/Old Records Reveals: Discharge Summary (Discharge note reviewed from hospitalist from 08/13/2024 when patient was admitted for hypotension, spontaneous bleeding right lower extremity)
Source: patient
Patient Management
Social determinants of health affecting care: Living situation and Strong social support
Discussion with other providers: Hospitalist and Other ([employer] Teacher, Dr. George Terrazas who agreed to consult if patient was admitted)
Escalation/DeEscalation of care consider admission/obs:
Patient still with an elevated heart rate. Is not a cardioversion candidate given she is not on anticoagulation. Will be admitted for rate control
ED Attending Note
-
Portions of this chart may have been created with voice recognition software.� Occasional wrong word or��sound alike� substitutions may have occurred due to the inherent limitations of voice recognition software.
Discharge Plan
Departure
Patient Disposition: Admit
Date of Disposition: 10/13/24
Time of Disposition: 13:00
Admit to: Telemetry
Presentation/result/management discussed w/ accepting MD/DO: Hospitalist
Patient with high blood pressure during this ER visit?: Yes
Condition: Good
Discharge Problem:
Atrial flutter with rapid ventricular response
Prescriptions:
No Action
citalopram 20 mg Tablet
20 mg PO DAILY
fluticasone propionate 50 mcg/actuation [place],Suspension
1 spray INTRANASAL DAILYPRN PRN (Reason: congestion)
coenzyme Q10 [CoQ-10] 100 mg Capsule
100 mg PO DAILY
cholecalciferol (vitamin D3) 25 mcg (1,000 unit) Tablet
25 mcg PO DAILY
Fiber Gummies 2 gram Tablet,Chewable
4 g PO DAILYPRN PRN (Reason: constipation)
diltiazem HCl [Cartia XT] 120 mg Capsule,Extended Release 24hr
120 mg PO DAILY Qty: 30 0RF
Eliquis 5 mg Tablet
5 mg PO BID Qty: 60 0RF
calcium carbonate [Calcium 600] 600 mg calcium (1,500 mg) Tablet
600 mg PO DAILY
carboxymethylcellulose sodium [Refresh Tears] 0.5 % Drops
1 drp BOTH EYES BIDPRN PRN (Reason: dry eyes)
rosuvastatin 10 mg Tablet
10 mg PO DAILY
acetaminophen [Tylenol Extra Strength] 500 mg Tablet
1,000 mg PO TID Qty: 0 0RF
Referrals:
Faith Carrera MD [Family Provider] -
Interventions
Interventions:
*Risk Screen - Suicide Last Done: 10/13/24 11:05
*General Assessment Last Done: 10/13/24 11:05
ED- Fall Risk Assessment Last Done: 10/13/24 11:05
*ED COVID-19 Vaccine History Last Done: 10/13/24 11:05
ED- Cardiac Assessment Last Done: 10/13/24 11:05
ED- Pulmonary Assessment Last Done: 10/13/24 11:05
Discharge Date and Time
Print Language: TAIWANESE
[2024-10-13 12:59] LABS: Potassium 4.2 mmol/L (3.5-5.1)
[2024-10-13] MEDS: CARDIZEM 125 IV ×2 (13:14→22:09)
--- NOTE | 2024-10-13 13:24 | HPS.HSE ---
Family Physician
-
Family Physician: Faith Carrera MD
Chief Complaint
-
palpitations
History of Present Illness
89-year-old female past medical history of atrial fibrillation with loop recorder not on anticoagulation due to recent bleeding, hyperlipidemia, depression, presenting with palpitations starting this morning. Paramedics arrived and found her to be
in A-fib with heart rate close to 200. She was given 10 IV Cardizem en route to the hospital. Denies palpitations anymore. Denies chest pain or shortness of breath or dizziness. She occasionally has left ankle swelling which responds well to
compression socks. Denies any weight gain. Denies any fevers or chills.
Patient was recently admitted from 08/10 to 08/12 with spontaneous hematoma/hemorrhage of right thigh status post internal iliac/inferior gluteal artery embolization on 08/10. She is no longer on anticoagulation.
She drinks alcohol occasionally. Denies smoking.
Medical History
Past Medical History
Past Medical History: Reports Other ( atrial fibrillation with loop recorder not on anticoagulation due to recent bleeding, hyperlipidemia, depression)
Past Surgical History: Reports None
Social History
Tobacco: Non-smoker
Alcohol: Occasional
Drug: None
Family History
Family History: Not pertinent
Allergies / Home Medications
Allergies reflects when Allergies were last updated in [facility].
Home Medications with original date entered in [facility]
Allergy/Medication List:
Allergies
Allergy/AdvReac Type Severity Reaction Status Date / Time
No Known Allergies Allergy Verified 08/10/24 13:22
Home Medications
cholecalciferol (vitamin D3) 25 mcg (1,000 unit) tablet 25 mcg PO DAILY Supplement 02/15/24
citalopram 20 mg tablet 20 mg PO DAILY depression/anxiety 02/15/24
coenzyme Q10 100 mg capsule (CoQ-10) 100 mg PO DAILY Supplement 02/15/24
inulin 2 gram chewable tablet (Fiber Gummies) 4 g PO DAILYPRN PRN constipation 02/15/24
calcium carbonate (Calcium 600) 600 mg PO DAILY Supplement 08/10/24
carboxymethylcellulose sodium 0.5 % eye drops (Refresh Tears) 1 drp BOTH EYES BIDPRN PRN dry eyes 08/10/24
rosuvastatin 10 mg tablet 10 mg PO DAILY High Cholesterol 08/10/24
acetaminophen 650 mg tablet,extended release 1,300 mg PO Q12H 10/13/24
diltiazem HCl 120 mg capsule,24 hr,extended release 120 mg PO DAILY 10/13/24
Review of Systems
-
History Source: Patient
A 12 point ROS was completed and negative except as noted: Yes
Constitutional: Reports No Symptoms
EENT: Reports No Symptoms
Respiratory: Reports See HPI
Cardiac: Reports See HPI
Abdomen/GI: Reports No Symptoms
: Reports No Symptoms
Musculoskeletal: Reports No Symptoms
Skin: Reports No Symptoms
Neurological: Reports No Symptoms
Endocrine: Reports No Symptoms
Hematologic/Lymphatic: Reports No Symptoms
Psych: Reports No Symptoms
Physical Exam
Vital Signs
Vital Signs
Temp Pulse Resp BP Pulse Ox
97.5 F 107 21 114/80 95
10/13/24 11:05 10/13/24 12:30 10/13/24 12:30 10/13/24 12:00 10/13/24 12:30
Physical Exam
General: Well Developed, Well Nourished and No Apparent Distress
HEENT: NormoCephalic, Moist mucous membranes and Atraumatic
Respiratory: Clear
Cardiac: S1/S2 and Regular Rhythm; No Murmur or Rub
GI: Soft, Non Tender, Non Distended and Normal Bowel Sounds; No Organomegaly
Rectal: Deferred by Provider
Musculoskeletal: No Clubbing, No Cyanosis and No Edema
Skin: No Rash
Neuro: Nonfocal/grossly intact
Laboratory Results
-
10/13/24 11:22
10/13/24 12:34
Laboratory Results
PT 13.4 Sec (11.4-14.6) 10/13/24 11:22
INR 0.99 10/13/24 11:22
APTT 25.9 Sec (23.4-35.0) 10/13/24 11:22
Total Bilirubin Cancelled 10/13/24 11:22
AST Cancelled 10/13/24 11:22
ALT Cancelled 10/13/24 11:22
Alkaline Phosphatase Cancelled 10/13/24 11:22
Troponin I 0.019 ng/ml 10/13/24 11:22
Data Reviewed
-
Lab Data: Labs Reviewed by me
Old Records: Reviewed
Impression/Plan
-
IMPRESSION:
PLAN:
# Atrial fibrillation/flutter with RVR
# History of atrial fibrillation with loop recorder
-EKG performed here shows probable junctional tachycardia with occasional PVCs, possible atrial flutter/atrial tachycardia
-Cardizem drip
-Cardiology consulted
-Not on anticoagulation due to bleeding
Recent spontaneous hemorrhage of right thigh hematoma
-Status post embolization of distal right internal iliac/inferior gluteal artery bleeding site on 08/10/2024
-Not on Eliquis anymore
Hyperlipidemia
-Continue statin
Depression
-Continue citalopram
DNR/DNI
DVT prophylaxis�SCDs
Regular diet
--- NOTE | 2024-10-13 15:02 | CON.CAR ---
Addendum entered and electronically signed by George Perry DO 10/13/24 15:50:
I saw and examined the patient.
The Signal Supervisor's note was reviewed and I agree with the note.
Comment:
Briefly, patient is a pleasant 89-year-old female with a past history of emphysema, diabetes, pulmonary pretension, hyperlipidemia, paroxysmal atrial fibrillation in setting of acute respiratory infection, recent hospitalization due to spontaneous
right iliac artery hemorrhage with embolization and no recurrence of bleeding off anticoagulation who underwent ILR implant August 2024 who presents with rapid palpitations. On arrival to ED patient noted to be in AF/AFL heart rate roughly 200
bpm. Patient started on diltiazem drip with improvement in heart rate and symptoms. EKG noted to be AT versus AFL 120 bpm. Patient noting only symptom of palpitations. No chest pain, shortness of breath, near-syncope, syncope, or weakness.
Telemetry AFL variable AV block
EKG as noted above
GENERAL: no acute distress
EYE: sclera anicteric
NECK: Supple, no JVD, no carotid bruit appreciated
ENT: normal nose, moist mucosal membranes
CARDIAC: Irregularly irregular, +S1/S2, no murmur, rubs, or gallops
CHEST/PULMONARY: Normal effort, clear breath sounds
ABDOMEN: Soft, without focal tenderness or distention
NEUROLOGICAL: Alert and oriented x3
SKIN: Warm and dry, no rash; RLE no edema, LLE trace pedal edema
PSYCH: Normal and appropriate interaction.
A/P as below
Paroxysmal atrial arrhythmia likely atrial flutter with variable AV block not on anticoagulation. [id number]: 5 (age, gender, diabetes mellitus type 2). Remains on diltiazem drip for rate control. Plan to initiate oral anticoagulation and
monitor response. Continue rate control with AV aldo blocking agent. Tentative plan for DEISI/DCCV Wednesday if remains in atrial arrhythmia. It is important that patient is able to tolerate oral anticoagulation hence the continued close monitoring
on telemetry. Appreciate input by primary service regarding chronic medical conditions.
Original Note:
Consultation
Consultation Request
Date/Time Consultation Requested: 10/13/2024
Date/Time Consultation Performed: 10/13/2024
Requesting Provider: Dr. Fernando
Performing Provider: Loreta Mora PA-C for Dr. Perry
Reason for Consultation: Recurrent AF
Medical History
-
Chief Complaint: hip pain
History of Present Illness:
HPI: Zulema is an 88-year-old female with past medical history of paroxysmal atrial fibrillation, emphysema, diabetes, pulmonary hypertension, hyperlipidemia, and recent hospitalization for spontaneous hemorrhage of R internal iliac artery s/p
embolization 08/10/2024. She was initially diagnosed with afib in the setting of influenza A infection 01/2024 and was started on cardizem and Eliquis at the time. She converted to SR on cardizem gtt and had no recurrent afib after that admission.
When she came in with spontaneous bleed, anticoagulation was stopped and Linq monitor was implanted to continue monitoring for recurrent arrhythmia. She has been feeling well since that admission, however this AM around 9:00, she noted sudden onset
of palpitations and heart racing. She was concerned she was back in afib, so called EMS. On arrival, HR was reportedly nearly 200 in rapid AFib and she was give 10mg IV cardizem. HR improved and on arrival to ER, initial ECG appears to show rapid
atrial flutter with HR 112 bpm. She was started on cardizem gtt and has been admitted for rate control. Cardiology consulted for evaluation. She reports she is feeling well and palpitations have improved. Remains in atrial flutter with HR ~115 bpm.
No other cardiac complaints.
PMH:
PAF in setting of influenza 01/2024
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
Emphysema
Diabetes
Pulmonary hypertension
Dyslipidemia
Chronic back pain with prior lumbar laminectomy 2018
Anxiety
Past Medical History
Past Medical History: Other (in HPI)
Social History
Tobacco: Former Smoker (remote)
Alcohol: Occasional
Personal:
Living: With Family
Family History
Family History: CAD, Cancer and Hypertension
Allergies / Home Medications
Allergy/AdvReac Type Severity Reaction Status Date / Time
No Known Allergies Allergy Verified 08/10/24 13:22
�Medication �Instructions �Recorded �Confirmed �Type
cholecalciferol (vitamin D3) 25 25 mcg PO DAILY Supplement 02/15/24 10/13/24 History
mcg (1,000 unit) tablet
citalopram 20 mg tablet 20 mg PO DAILY depression/anxiety 02/15/24 10/13/24 History
coenzyme Q10 100 mg capsule 100 mg PO DAILY Supplement 02/15/24 10/13/24 History
(CoQ-10)
inulin 2 gram chewable tablet 4 g PO DAILYPRN PRN constipation 02/15/24 10/13/24 History
(Fiber Gummies)
calcium carbonate (Calcium 600) 600 mg PO DAILY Supplement 08/10/24 10/13/24 History
carboxymethylcellulose sodium 0.5 1 drp BOTH EYES BIDPRN PRN dry eyes 08/10/24 10/13/24 History
% eye drops (Refresh Tears)
rosuvastatin 10 mg tablet 10 mg PO DAILY High Cholesterol 08/10/24 10/13/24 History
acetaminophen 650 mg 1,300 mg PO Q12H Pain 10/13/24 10/13/24 History
tablet,extended release
diltiazem HCl 120 mg capsule,24 120 mg PO DAILY Heart Disease/BP 10/13/24 10/13/24 History
hr,extended release
Review of Systems
-
History Source: Patient
All other systems: Negative unless noted
Physical Exam
Vital Signs
Temp Pulse Resp BP Pulse Ox
97.5 F 114 20 132/95 96
10/13/24 11:05 10/13/24 14:50 10/13/24 14:50 10/13/24 14:50 10/13/24 14:50
Lab Results
10/13/24 11:22
10/13/24 12:34
Troponin I 0.019 ng/ml 10/13/24 11:22
Physical Exam
General: Well Developed, Well Nourished and No Apparent Distress
HEENT: Normocephalic, Anicteric and Moist Mucous Membranes
Respiratory: Clear and Non Labored Respirations
Cardiac: S1/S2 and Irregular Rhythm
Musculoskeletal: No Clubbing, No Cyanosis and No Edema
Skin: Warm and Dry
Neuro: AO x 3 and Nonfocal/Grossly Intact
Psych: Calm
Impression / Plan
-
PCP: Dr. Dr. Faith Carrera
Pneumatic Jack Operator: Dr. Benton
Impression:
Presented with palpitations
Rapid atrial flutter
Paroxysmal atrial fibrillation in setting of influenza 01/2024
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
Linq Monitor
Emphysema
Diabetes
Pulmonary hypertension
Dyslipidemia
Chronic back pain with prior lumbar laminectomy 2018
Anxiety
ECHO 05/03/24: EF 55 to 60%, MAC, mild MR, aortic sclerosis, normal right heart with PAP 35 to 38 mmHg, physiologic pericardial effusion
Plan:
-Presented with palpitations that started this AM around 9:00. In rapid atrial flutter on arrival to ER by ECG.
-s/p 10mg IV cardizem en route. Cardizem gtt running @10. HR ~115 bpm.
-Continue rate control w/ carziem gtt for now. On cardizem CD 120mg daily as OP. May need to increase dose.
-Not on OAC due to recent spontaneous R internal iliac artery hemorrhage 08/10. s/p embolization. No recurrent bleeding per pt.
-Hgb stable at 14.1. Will restart Eliquis 5 mg BID and follow closely for recurrent bleed.
-Interrogate Linq monitor.
-K stable at 4.2
-Troponin 0.019. No chest pain.
-Recent echo 05/2024 with preserved EF and mild MR as noted above. No need to repeat.
-Will arrange follow up.
HPI: Zulema is an 88-year-old female with past medical history of paroxysmal atrial fibrillation, emphysema, diabetes, pulmonary hypertension, hyperlipidemia, and recent hospitalization for spontaneous hemorrhage of R internal iliac artery s/p
embolization 08/10/2024. She was initially diagnosed with afib in the setting of influenza A infection 01/2024 and was started on cardizem and Eliquis at the time. She converted to SR on cardizem gtt and had no recurrent afib after that admission.
When she came in with spontaneous bleed, anticoagulation was stopped and Linq monitor was implanted to continue monitoring for recurrent arrhythmia. She has been feeling well since that admission, however this AM around 9:00, she noted sudden onset
of palpitations and heart racing. She was concerned she was back in afib, so called EMS. On arrival, HR was reportedly nearly 200 in rapid AFib and she was give 10mg IV cardizem. HR improved and on arrival to ER, initial ECG appears to show rapid
atrial flutter with HR 112 bpm. She was started on cardizem gtt and has been admitted for rate control. Cardiology consulted for evaluation. She reports she is feeling well and palpitations have improved. Remains in atrial flutter with HR ~115 bpm.
No other cardiac complaints.
Data Reviewed
-
EKG: Tracing Personally Visualized and interpreted
Labs: Labs Reviewed by me
Old Records: Reviewed
--- NOTE | 2024-10-13 17:39 | PTCARENOTE ---
Pt admitted to 317-1 from ED. Ambulated to bed from stretcher. Jabierzem gtt @ 15 via LFA. Tele placed - SR in 60s on monitor. Oriented to room, call kim and POC. Verbalized understanding of all instructions, able to make needs known.
[2024-10-13] MEDS: TYLENOL 650 MG PO ×2 (18:22→23:03)
[2024-10-13] MEDS: ELIQUIS 5 MG PO (19:57)
[2024-10-14 03:00] VITALS: BP 133/70
--- NOTE | 2024-10-14 03:45 | W.PN.UPDATE ---
Update Note
Progress Note Update
cardizem gtt placed on hold. HR down to 40-50s on 15mg/hr and also with decreasing of dose.
[2024-10-14] MEDS: TYLENOL PO (06:20)
[2024-10-14 06:43] LABS: % Eosinophils 2.5 % (0-6); % Immature Granulocytes 0.3 % (0-0.5); % Lymphocytes 33.6 % (20.5-51.1); % Neutrophils 50.6 % (42.2-75.2); Absolute Eosinophils 0.1 10^3/uL (0-0.7); Absolute Lymphocytes 1.3 10^3/uL (1.2-3.4); Absolute Monocytes 0.5 10^3/uL (0.1-0.6); Hematocrit 39.5 % (37.0-47.0); Mean Corp Hgb Conc. 32.9 g/dL (33.0-37.0); Mean Corpuscular Hgb 33.9 pg (27.0-31.0); Mean Corpuscular Volume 103.1 fL (81.0-99.0); Nucleated Red Blood Cells % 0 %; Platelet Count 142 10^3/uL (130-400); Red Blood Cell Count 3.83 10^6/uL (4.20-5.40); Red Cell Dist. Width 13.1 % (11.5-14.5); White Blood Cell Count 3.9 10^3/uL (4.8-10.8)
[2024-10-14 07:17] LABS: ALT (SGPT) 21 U/L (0-35); AST (SGOT) 23 U/L (14-36); Albumin 3.9 g/dl (3.5-5.0); Alkaline Phosphatase 40 U/L (38-126); Blood Urea Nitrogen 12 mg/dl (7-17); Calcium 9.3 mg/dl (8.4-10.2); Carbon Dioxide 28 mmol/L (22-30); Chloride 105 mmol/L (98-107); Estimated Creatinine Clearance 38 ml/min; Glucose 94 mg/dl (70-99); Potassium 4.6 mmol/L (3.5-5.1); Sodium 140 mmol/L (135-145); Total Bilirubin 0.4 mg/dl (0.2-1.3); Total Protein 6.2 g/dl (6.3-8.2); eGFR > 60.00
[2024-10-14 08:00] VITALS: BP 164/82
[2024-10-14] MEDS: OSCAL CAL 500 500 MG PO (08:57)
[2024-10-14] MEDS: CRESTOR 10 MG PO (08:57)
[2024-10-14] MEDS: ELIQUIS 5 MG PO ×2 (08:58→20:48)
[2024-10-14] MEDS: VITAMIN D3 (cholecalciferol) 25 MCG PO (08:58)
[2024-10-14] MEDS: CELEXA 20 MG PO (08:58)
--- NOTE | 2024-10-14 09:50 | W.PN.HOSP.TC ---
Today's Communication/Plan
-
Resume oral Cardizem
Aspirin for now
Possible discharge
Assessment / Plan
Assessment / Plan
Physical Exam
-
General: Well Developed, No Apparent Distress, Comfortable and Obese
HEENT: Atraumatic, Moist Mucous Membranes and Other (right eye corneal opacity )
Respiratory: Clear to Auscultation
Cardiac: Regular Rhythm and S1/S2
GI: Soft, Nontender and Nondistended
Rectal: Negative Maroon Stools
Genito-urinary: No Costovertebral Tender
Musculoskeletal: No Cyanosis
Skin: Warm and Dry
Neuro: Oriented and Nonfocal/Grossly Intact; Negative Slurred Speech or Facial Droop
Hematologic / Lymphatic: No Lymphadenopathy
# Atrial fibrillation/flutter with RVR
# History of paroxysmal atrial fibrillation with loop recorder
-EKG performed here shows probable junctional tachycardia with occasional PVCs, possible atrial flutter/atrial tachycardia
s/p Cardizem gtt, will place her back on oral Cardizem. In SR this morning, will do aspirin while discussing decision about systemic AC. [id number]: score at least 4 (HTN, age 75 or more, female gender). No Diabetes history.
# Recent spontaneous hemorrhage of right thigh hematoma
-Status post embolization of distal right internal iliac/inferior gluteal artery bleeding site on 08/10/2024
-Not on Eliquis anymore
#Hyperlipidemia
-Continue statin
# Depression
-Continue citalopram
DNR/DNI
DVT prophylaxis�SCDs
Regular diet
Total discharge time spent to see the patient on the floor, examine the patient, review data and lab results, discuss discharge plan with patient, nursing staff around 65 minutes.
Anticipated Discharge: Within 24 hours
Subjective/Interval History
-
Date of Service: October 14, 2024
No chest pain
No sob
Objective Data
-
Labs:
Laboratory Results
10/14/24
06:27
WBC 3.9 L
Hgb 13.0
Hct 39.5
Plt Count 142
Sodium 140
Potassium 4.6
Chloride 105
Carbon Dioxide 28
BUN 12
Creatinine 0.9
Glucose 94
Calcium 9.3
Total Bilirubin 0.4
AST 23
ALT 21
Alkaline Phosphatase 40
Vital Signs:
Vital Signs
Temp Pulse Resp BP Pulse Ox
97.7 F 68 16 164/82 97
10/14/24 08:00 10/14/24 08:00 10/14/24 08:00 10/14/24 08:00 10/14/24 08:00
I&O
10/13/24 10/14/24 10/15/24
06:59 06:59 06:59
Intake Total 960 / 960
Balance 960 / 960
[2024-10-14] MEDS: LOW STRENGTH ASPIRIN 81 MG PO (10:30)
[2024-10-14] MEDS: CARDIZEM CD 180 MG PO (10:30)
--- NOTE | 2024-10-14 10:49 | CM ---
CM met with pt and spouse at bedside.
Pt resides with spouse in a 1 SH with 1 small step to enter. No DME. Ind amb/adl's.
Confirmed PCP is Faith Carrera and pharmacy is [facility] on [address]
No hx of HC or SNF.
Discharge dispo anticipated home no needs.
[2024-10-14 11:30] VITALS: BP 162/93
[2024-10-14] MEDS: TYLENOL 650 MG PO ×2 (11:57→17:46)
--- NOTE | 2024-10-14 13:02 | W.PN.CARDCBS ---
Today's Communication / Plan
-
Continue Eliquis
Monitor H&H, if stable, likely discharge in next 24 hours
Continue diltiazem
Recommend follow-up outpatient with Dr Benton
Impression / Plan
-
PCP: Dr. Dr. Faith Carrera
Contemporary Or Modern Dancer: Dr. Benton
Impression:
Presented with palpitations
Rapid atrial flutter
Paroxysmal atrial fibrillation in setting of influenza 01/2024
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
Linq Monitor
Emphysema
Diabetes
Pulmonary hypertension
Dyslipidemia
Chronic back pain with prior lumbar laminectomy 2018
Anxiety
ECHO 05/03/24: EF 55 to 60%, MAC, mild MR, aortic sclerosis, normal right heart with PAP 35 to 38 mmHg, physiologic pericardial effusion
Plan:
-Presented with palpitations that started this AM around 9:00. In rapid atrial flutter on arrival to ER by ECG. -> telemetry assessment shows SR since admission to floor from ED
-s/p 10mg IV cardizem en route. Cardizem gtt running @10. HR ~115 bpm.
-Continue rate control w/ carziem gtt for now. On cardizem CD 120mg daily as OP. May need to increase dose.
-Not on OAC due to recent spontaneous R internal iliac artery hemorrhage 08/10. s/p embolization. No recurrent bleeding per pt.
-Hgb stable at 14.1, repeat 13.0 on 10/14/2024. Single dose Eliquis 5 mg BID and follow closely for recurrent bleed. No recurrence during admission
-K stable at 4.2
-Troponin 0.019. No chest pain.
-Recent echo 05/2024 with preserved EF and mild MR as noted above. No need to repeat.
-Will arrange follow up.
HPI: Zulema is an 88-year-old female with past medical history of paroxysmal atrial fibrillation, emphysema, diabetes, pulmonary hypertension, hyperlipidemia, and recent hospitalization for spontaneous hemorrhage of R internal iliac artery s/p
embolization 08/10/2024. She was initially diagnosed with afib in the setting of influenza A infection 01/2024 and was started on cardizem and Eliquis at the time. She converted to SR on cardizem gtt and had no recurrent afib after that admission.
When she came in with spontaneous bleed, anticoagulation was stopped and Linq monitor was implanted to continue monitoring for recurrent arrhythmia. She has been feeling well since that admission, however this AM around 9:00, she noted sudden onset
of palpitations and heart racing. She was concerned she was back in afib, so called EMS. On arrival, HR was reportedly nearly 200 in rapid AFib and she was give 10mg IV cardizem. HR improved and on arrival to ER, initial ECG appears to show rapid
atrial flutter with HR 112 bpm. She was started on cardizem gtt and has been admitted for rate control. Cardiology consulted for evaluation. She reports she is feeling well and palpitations have improved. Remains in atrial flutter with HR ~115 bpm.
No other cardiac complaints.
Progress Note - Contemporary Or Modern Dancer
Subjective
Date of Service: October 14, 2024
Patient seen and examined. No acute events overnight. Patient resting comfortably in bed. Family at bedside. Patient denies any chest pain, shortness of breath, palpitations, lightheadedness, dizziness, near-syncope, syncope, edema, or weakness.
Patient reports resolution of palpitations following admission to hospital room. Telemetry demonstrates sinus rhythm without recurrence of AF/AFL. Patient given Eliquis overnight. No reported bleeding. No other complaints at this time.
Objective
Labs:
10/14/24 06:27
10/14/24:
Labs
Hgb 13.0 g/dL (12.0-16.0) 10/14/24:
Hct 39.5 % (37.0-47.0) 10/14/24:
Plt Count 142 10^3/uL (130-400) 12/14/24 06:27
PT 13.4 Sec (11.4-14.6) 10/13/24 11:22
INR 0.99 10/13/24 11:22
APTT 25.9 Sec (23.4-35.0) 10/13/24 11:22
Sodium 140 mmol/L (135-145) 10/14/24 06:27
Potassium 4.6 mmol/L (3.5-5.1) 10/14/24 06:27
BUN 12 mg/dl (7-17) 10/14/24 06:27
Creatinine 0.9 mg/dL (0.6-1.0) 10/14/24 06:27
Glucose 94 mg/dl (70-99) 10/14/24 06:27
Troponins
10/13/24
11:22
Troponin I 0.019
Vital Signs and I&O:
Vital Signs
Temp Pulse Resp BP Pulse Ox
98.0 F 83 16 162/93 98
10/14/24 11:30 10/14/24 11:30 10/14/24 11:30 10/14/24 11:30 10/14/24 11:30
Vital Signs
Temp Pulse Resp BP Pulse Ox
98.0 F 83 16 162/93 98
10/14/24 11:30 10/14/24 11:30 10/14/24 11:30 10/14/24 11:30 10/14/24 11:30
Intake & Output
10/12/24 10/13/24 10/14/24 10/15/24
06:59 06:59 06:59 06:59
Intake Total 960 / 960
Balance 960 / 960
Physical Exam
Physical Exam
GENERAL: no acute distress
EYE: sclera anicteric
NECK: Supple, no JVD, no carotid bruit appreciated
ENT: normal nose, moist mucosal membranes
CARDIAC: Regular rate and rhythm, +S1/S2, no murmur, rubs, or gallops
CHEST/PULMONARY: Normal effort, clear breath sounds
ABDOMEN: Soft, without focal tenderness or distention
NEUROLOGICAL: Alert and oriented x3
SKIN: Warm and dry, no rash; no edema
PSYCH: Normal and appropriate interaction.
[2024-10-14 16:00] VITALS: BP 144/79
--- NOTE | 2024-10-14 16:24 | CHAP ---
Zulema greeted me with smile and said she's doing better - looks forward to going home. Emotional and spiritual support provided.
[2024-10-14 19:00] VITALS: BP 138/71
[2024-10-14 23:00] VITALS: BP 135/79
[2024-10-15] MEDS: TYLENOL PO (00:44)
[2024-10-15 03:00] VITALS: BP 125/77
[2024-10-15] MEDS: TYLENOL 650 MG PO ×2 (05:34→11:38)
[2024-10-15 07:00] VITALS: BP 142/80
[2024-10-15] MEDS: OSCAL CAL 500 500 MG PO (09:09)
[2024-10-15] MEDS: CELEXA 20 MG PO (09:09)
[2024-10-15] MEDS: ELIQUIS 5 MG PO (09:09)
[2024-10-15] MEDS: CRESTOR 10 MG PO (09:09)
[2024-10-15] MEDS: VITAMIN D3 (cholecalciferol) 25 MCG PO (09:10)
--- NOTE | 2024-10-15 09:45 | W.PN.HOSP.TC ---
Today's Communication/Plan
-
discharge after blood work
will need rn case management for Eliquis pricing
Assessment / Plan
Assessment / Plan
Physical Exam
-
General: Well Developed, No Apparent Distress, Comfortable and Obese
HEENT: Atraumatic, Moist Mucous Membranes and Other (right eye corneal opacity )
Respiratory: Clear to Auscultation
Cardiac: Regular Rhythm and S1/S2
GI: Soft, Nontender and Nondistended
Rectal: Negative Maroon Stools
Genito-urinary: No Costovertebral Tender
Musculoskeletal: No Cyanosis
Skin: Warm and Dry
Neuro: Oriented and Nonfocal/Grossly Intact; Negative Slurred Speech or Facial Droop
Hematologic / Lymphatic: No Lymphadenopathy
# Atrial fibrillation/flutter with RVR
# History of paroxysmal atrial fibrillation with loop recorder
-EKG performed here shows probable junctional tachycardia with occasional PVCs, possible atrial flutter/atrial tachycardia
s/p Cardizem gtt, place her back on oral Cardizem. In SR now, increased Cardizem to 180 mg from 120 mg, started on Eliquis. . [id number]: score at least 4 (HTN, age 75 or more, female gender). No Diabetes history.
# Recent spontaneous hemorrhage of right thigh hematoma
-Status post embolization of distal right internal iliac/inferior gluteal artery bleeding site on 08/10/2024
-Not on Eliquis anymore
#Hyperlipidemia
-Continue statin
# Depression
-Continue citalopram
DNR/DNI
DVT prophylaxis�SCDs
Regular diet
Total discharge time spent to see the patient on the floor, examine the patient, review data and lab results, discuss discharge plan with patient, nursing staff around 65 minutes.
Anticipated Discharge: Today
Subjective/Interval History
-
Date of Service: October 15, 2024
No sob
No chest pain
No fevers
Objective Data
-
Vital Signs:
Vital Signs
Temp Pulse Resp BP Pulse Ox
97.6 F 63 14 142/80 95
10/15/24 07:00 10/15/24 07:00 10/15/24 07:00 10/15/24 07:00 10/15/24 07:00
I&O
10/14/24 10/15/24 10/16/24
06:59 06:59 06:59
Intake Total 960 / 960 1520 / 1520
Balance 960 / 960 1520 / 1520
--- NOTE | 2024-10-15 10:38 | CM ---
CM reviewed chart and discussed pt with RN. Pt is I/AMB and I/ADLs. Anticipated home no needs. Family to transport at dc-pt to arranger her own transport. Please consult CM/SW should dc planning needs change.
CM/SW will contine to follow to ensure a safe and timely dc.
[2024-10-15 11:00] VITALS: BP 167/86
[2024-10-15 12:08] LABS: Hematocrit 44.1 % (37.0-47.0); Hemoglobin 14.5 g/dL (12.0-16.0); Mean Corp Hgb Conc. 32.9 g/dL (33.0-37.0); Mean Corpuscular Hgb 33.7 pg (27.0-31.0); Mean Corpuscular Volume 102.6 fL (81.0-99.0); Mean Platelet Volume 9.9 fL (7.4-10.4); Platelet Count 173 10^3/uL (130-400); Red Cell Dist. Width 13.1 % (11.5-14.5); White Blood Cell Count 6.3 10^3/uL (4.8-10.8)
[2024-10-15 12:26] LABS: Blood Urea Nitrogen 18 mg/dl (7-17); Calcium 10.1 mg/dl (8.4-10.2); Carbon Dioxide 29 mmol/L (22-30); Chloride 103 mmol/L (98-107); Estimated Creatinine Clearance 38 ml/min; Glucose 98 mg/dl (70-99); Potassium 4.3 mmol/L (3.5-5.1); Sodium 139 mmol/L (135-145); eGFR > 60.00
--- NOTE | 2024-10-15 12:45 | W.DCSUMMARY ---
Discharge Summary
Discharge Data
Date of Admission: 10/13/24
Date of Discharge: 10/15/24
-
Pending Results: No
Hospital Course
89 years old female presented with palpitations. Patient was found to have atrial fibrillation with rapid ventricular response. Patient was admitted to the hospital. Started on intravenous Cardizem drip. She subsequently converted to sinus
rhythm. She was started back on oral Cardizem but increase the dose. Combustion Analyst evaluated the patient recommended systemic anticoagulation. After discussing benefits and risks with the patient, she chose to Eliquis. She verbalized
understanding to use of systemic anticoagulation. Patient remained hemodynamically stable. Hemoglobin was monitored and did not drop. Patient was discharged home in a stable condition to follow-up with cardiology in the office.
Discharge Plan
-
Patient Disposition: Home (Routine Discharge)
Discharge Diagnosis/Procedures: Paroxysmal atrial fibrillation, resolved
You were seen by cardiology, Cardizem dose was increased and you were started on blood thinner called Eliquis, you will need to call cardiology office to make an appointment.
Diet: As tolerated
Referrals:
Bailee Benton, [Active] - in one to two weeks
Faith Carrera MD [Family Provider] -
Prescriptions:
New
Eliquis 5 mg Tablet
5 mg PO BID Qty: 60 0RF
diltiazem HCl [Cardizem CD] 180 mg capsule,extended release 24hr
180 mg PO DAILY Qty: 30 0RF
Continued
citalopram 20 mg Tablet
20 mg PO DAILY
coenzyme Q10 [CoQ-10] 100 mg Capsule
100 mg PO DAILY
cholecalciferol (vitamin D3) 25 mcg (1,000 unit) Tablet
25 mcg PO DAILY
Fiber Gummies 2 gram Tablet,Chewable
4 g PO DAILYPRN PRN (Reason: constipation)
calcium carbonate [Calcium 600] 600 mg calcium (1,500 mg) Tablet
600 mg PO DAILY
carboxymethylcellulose sodium [Refresh Tears] 0.5 % Drops
1 drp BOTH EYES BIDPRN PRN (Reason: dry eyes)
rosuvastatin 10 mg Tablet
10 mg PO DAILY
acetaminophen 650 mg Tablet Extended Release
1,300 mg PO Q12H
Discontinued
diltiazem HCl 120 mg Capsule,Extended Release 24hr
120 mg PO DAILY
Discharge Orders:
Discharge Patient (As Directed); Ordered 10/15/24
Ordered By: Tiny Casarez
Discharge Date and Time
Discharge Date/Time: 10/15/24 13:29
Print Language: ARMENIAN
[2024-10-15] MEDS: CARDIZEM CD 180 MG PO (12:57)
--- NOTE | 2024-10-15 14:11 | W.PN.CARDCBS ---
Today's Communication / Plan
-
Continue oral anticoagulation hemoglobin stable
Continue oral Cardizem
Stable for DC from CV standpoint
Impression / Plan
-
PCP: Dr. Dr. Faith Carrera
Field Crop Farmworker: Dr. Benton
Impression:
Presented with palpitations
Rapid atrial flutter
Paroxysmal atrial fibrillation in setting of influenza 01/2024
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
Linq Monitor
Emphysema
Diabetes
Pulmonary hypertension
Dyslipidemia
Chronic back pain with prior lumbar laminectomy 2018
Anxiety
ECHO 05/03/24: EF 55 to 60%, MAC, mild MR, aortic sclerosis, normal right heart with PAP 35 to 38 mmHg, physiologic pericardial effusion
Plan:
-Presented with palpitations that started this AM around 9:00. In rapid atrial flutter on arrival to ER by ECG. -> telemetry assessment shows SR since admission to floor from ED
-Continue rate control w/ carziem gtt for now. On cardizem CD 120mg daily as OP.
-Not previously on OAC due to recent spontaneous R internal iliac artery hemorrhage 08/10. s/p embolization. No recurrent bleeding per pt.
-Hgb stable at 14.1, repeat 13.0 on 10/14/2024, repeat 14 on 10/15. Single dose Eliquis 5 mg BID and follow closely for recurrent bleed. No recurrence during admission
-K stable at 4.2
-Troponin 0.019. No chest pain.
-Recent echo 05/2024 with preserved EF and mild MR as noted above. No need to repeat.
-Will arrange follow up.
HPI: Zulema is an 88-year-old female with past medical history of paroxysmal atrial fibrillation, emphysema, diabetes, pulmonary hypertension, hyperlipidemia, and recent hospitalization for spontaneous hemorrhage of R internal iliac artery s/p
embolization 08/10/2024. She was initially diagnosed with afib in the setting of influenza A infection 01/2024 and was started on cardizem and Eliquis at the time. She converted to SR on cardizem gtt and had no recurrent afib after that admission.
When she came in with spontaneous bleed, anticoagulation was stopped and Linq monitor was implanted to continue monitoring for recurrent arrhythmia. She has been feeling well since that admission, however this AM around 9:00, she noted sudden onset
of palpitations and heart racing. She was concerned she was back in afib, so called EMS. On arrival, HR was reportedly nearly 200 in rapid AFib and she was give 10mg IV cardizem. HR improved and on arrival to ER, initial ECG appears to show rapid
atrial flutter with HR 112 bpm. She was started on cardizem gtt and has been admitted for rate control. Cardiology consulted for evaluation. She reports she is feeling well and palpitations have improved. Remains in atrial flutter with HR ~115 bpm.
No other cardiac complaints.
Progress Note - Field Crop Farmworker
Subjective
Date of Service: October 15, 2024
Patient seen and examined. No acute events. Patient resting company in bed. Patient reporting no chest pain, shortness breath, palpitations, weakness. Patient tolerating anticoagulation without issue. No reported bleeding. Telemetry
demonstrates sinus rhythm.
Objective
Labs:
10/15/24 11:45
10/15/24 11:45
Labs
Hgb 14.5 g/dL (12.0-16.0) 10/15/24 11:45
Hct 44.1 % (37.0-47.0) 10/15/24 11:45
Plt Count 173 10^3/uL (130-400) D 10/15/24 11:45
PT 13.4 Sec (11.4-14.6) 10/13/24 11:22
INR 0.99 10/13/24 11:22
APTT 25.9 Sec (23.4-35.0) 10/13/24 11:22
Sodium 139 mmol/L (135-145) 10/15/24 11:45
Potassium 4.3 mmol/L (3.5-5.1) 10/15/24 11:45
BUN 18 mg/dl (7-17) H 10/15/24 11:45
Creatinine 0.9 mg/dL (0.6-1.0) 10/15/24 11:45
Glucose 98 mg/dl (70-99) 10/15/24 11:45
Troponins
10/13/24
11:22
Troponin I 0.019
Vital Signs and I&O:
Vital Signs
Temp Pulse Resp BP Pulse Ox
97.5 F 69 16 167/86 97
10/15/24 11:00 10/15/24 11:00 10/15/24 11:00 10/15/24 11:00 10/15/24 11:00
Vital Signs
Temp Pulse Resp BP Pulse Ox
97.5 F 69 16 167/86 97
10/15/24 11:00 10/15/24 11:00 10/15/24 11:00 10/15/24 11:00 10/15/24 11:00
Intake & Output
10/13/24 10/14/24 10/15/24 10/16/24
06:59 06:59 06:59 06:59
Intake Total 960 / 960 1520 / 1520
Balance 960 / 960 1520 / 1520
Physical Exam
Physical Exam
GENERAL: no acute distress
EYE: sclera anicteric
NECK: Supple, no JVD, no carotid bruit appreciated
ENT: normal nose, moist mucosal membranes
CARDIAC: Regular rate and rhythm, +S1/S2, no murmur, rubs, or gallops
CHEST/PULMONARY: Normal effort, clear breath sounds
ABDOMEN: Soft, without focal tenderness or distention
NEUROLOGICAL: Alert and oriented x3
SKIN: Warm and dry, no rash; no edema
PSYCH: Normal and appropriate interaction.
== END 2024-10-15 13:29 | disposition home or self-care (01) | DRG 310 ==
LOC: 3 WEST ACU 13:33
PROVIDERS: ADMITTING PHYSICIAN Hospitalist; ATTENDING PHYSICIAN Internal Medicine; CONSULT PHYSICIAN Internal Medicine Cardiovascular Disease; EMERGENCY PHYSICIAN Emergency Medicine; FAMILY PHYSICIAN Family Medicine
DX: I48.0 Paroxysmal atrial fibrillation (principal); I48.92 Unspecified atrial flutter; F32.A Depression, unspecified; Z66 Do not resuscitate; I44.30 Unspecified atrioventricular block; Z87.891 Personal history of nicotine dependence; E78.00 Pure hypercholesterolemia, unspecified
CPT/HCPCS: 80048; 80053; 81003; 81015; 83735; 84132; 84484; 85025; 85027; 85610; 85730; 93005; 96365; 96366; 99291

== ENCOUNTER 2025-07-07 09:11 | Emergency (ER) | payer OTHER, SELFPAY ==
[2025-07-07] VITALS (16 sets, daily range): BP systolic 93–139; BP diastolic 53–91; BMI 26.3
--- NOTE | 2025-07-07 10:07 | ED.GENMED ---
History of Present Illness
General
Chief Complaint: Heart Rate Problem
Source: patient, records and spouse
Exam Limitations: none
Time Seen by Provider: 07/07/25 09:35
Nursing documentation reviewed up to this point in time: agreed with
History of Present Illness
History of Present Illness:
89-year-old female with a past medical history of hypertension, hyperlipidemia, paroxysmal atrial fibrillation on Eliquis, CKD who presents to the ER with her for evaluation of palpitations. Patient reports onset of symptoms this morning at
around 9 AM after she finished breakfast and they have been constant since that time. She reports palpitations and tachycardia with heart rates up to 180 at home. She denies any chest pain. Denies feeling short of breath. She says she had some
mild dizziness walking around this morning but no dizziness here in the ER. She says that this feels identical to prior episodes of atrial fibrillation. She reports compliance with all medications including taking her Cardizem as well as her
Eliquis this morning. No missed doses of anticoagulant. She says that her last episode of atrial fibrillation was in October 2024--was admitted at that time and treated with rate control.
Past History
Past History
ED Past Medical History: Arrthythmia and HTN
ED Past Surgical History: Cholecystectomy and Orthopedic
Social History
Tobacco: Non-smoker
Alcohol: None
Drug: None
Personal:
Living: with family
Employment: Retired
Family History
Family History: Other
Review of Systems
Review of Systems
All Other Systems: ROS reviewed and negative except as documented in HPI and ROS
Constitutional: Denies fever or chills
Respiratory: Denies trouble breathing
Cardiac: Reports palpitations; Denies chest pain or syncope
ABD/GI: Denies abdominal pain, nausea, vomiting or diarrhea
: Denies flank pain
Musculoskeletal: Denies edema, neck pain or back pain
Neurological: Reports dizzy; Denies headache
Phy Exam
Physical Exam
Physical Exam:
General: Awake, alert, oriented x3; no acute distress
Head: Normocephalic, atraumatic
Eyes: Conjunctiva normal, sclera anicteric
Throat: Airway intact, handling secretions
Neck: Trachea midline, no JVD
Lungs: Clear to auscultation bilaterally, no wheezing, rales, rhonchi
Heart: Tachycardia with irregularly irregular rhythm, no murmurs, gallops, or rubs appreciated
Abd: Soft, non distended, nontender
Neuro: Grossly intact
Extremities: No edema in extremities, equal pulses in all extremities
Scores
Heart Failure Risk
Heart Failure Risk Score: Not Applicable
Heart Score for Chest Pain Patients
STEMI patient?: Not applicable
Withdrawal Assessment of Alcohol
Withdrawal Assessment Completed?: Not applicable
Course
Orders/Labs/Results
Orders:
Orders
07/07/25 09:12
Electrocardiogram (*1) Urgent
Reason for Study: Atrial Fibrillation
07/07/25 09:13
EKG- Treatment ONCE
07/07/25 09:56
Complete Blood Count/With Diff Urgent
Comprehensive Metabolic Panel Urgent
Free T4 Urgent
Glycohemoglobin (HgbA1c) Urgent
TSH Reflex To Free T4 Urgent
07/07/25 10:17
Propofol [Diprivan] 20 ml .ROUTE .STK-MED
07/07/25 10:28
EKG [Electrocardiogram (*1)] Urgent
Reason for Study: Chest Pain
EKG- Treatment ONCE
07/07/25 10:33
Electrocardiogram (*1) Urgent
Reason for Study: Atrial Fibrillation
EKG- Treatment ONCE
07/07/25 10:47
Add On- LAB Urgent
Tests Added?: Hb A1C
Abnormal Lab Results
07/07/25 07/07/25
09:56 10:55
MCH 33.7 H pg
(27.0-31.0)
Glucose 213 H mg/dl
(70-99)
TSH (Reflex) 0.12 L uIU/ml
(0.47-4.68)
POC Glucose 125 H mg/dl
(70-99)
07/07/25 09:56
07/07/25 09:56
Vital Signs
Initial and Last Documented VS:
Initial Vital Signs
Pulse Ox
94
07/07/25 09:13
Last Documented Vital Signs
Temp Pulse Resp BP Pulse Ox
36.6 C 65 16 132/86 96
07/07/25 11:00 07/07/25 11:00 07/07/25 11:00 07/07/25 11:00 07/07/25 11:00
Procedures
Cardioversion
Indication:: Afib
Performed by:: Ric Jimenez MD
Synchronized?: Yes
Energy Used: 200 joules
Number of attempts: 1
Successful?: Yes
ASA Risk Score: Class II
Any reaction or bad outcome to prior sedation/anesthesia?: No history of a reaction
Sedation level to be attained: moderate
Chart and allergies reviewed: Yes
Patient reassessed prior to sedation: Yes
Time out completed at (validating right patient & procedure): 10:25
History of difficult intubation: No
Airway free of obstruction: Yes
Patient has a gag reflex: Yes
Patient is able to open mouth: Yes
Patient has no dentures: Yes
Patient has no loose teeth: Yes
Medication administered by Provider during Moderate Sedation: IV Propofol (mg)
Total dose administered: 40
Time drug administered: 10:25
Start Time: 10:25
Stop Time: 10:39
MDM/Problems Addressed
Differential Diagnosis Includes:
Rapid atrial fibrillation, atrial flutter, SVT
MDM/Problems Addressed:
89-year-old female presents for evaluation of palpitations that started this morning similar to prior episodes of atrial fibrillation. She is normotensive but tachycardic, heart rate 140s during my assessment, rest of vitals within acceptable
range. Physical exam as documented. EKG on arrival confirms atrial fibrillation with RVR. 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 Patient would be a reasonable candidate for elective cardioversion as she
is on anticoagulation with compliance and furthermore has clear onset of symptoms this morning. Discussed with cardiology who are in agreement with elective cardioversion. I do long discussion with the patient and spoke to her about treatment
options including rate control as previous versus elective cardioversion today in the ER. She prefers to proceed with cardioversion. Informed consent obtained and filed in medical record.
Labs reviewed: CBC unremarkable, CMP shows random glucose 213 after eating this morning�discussed hyperglycemia with patient and need for follow-up with PCP, potential for diagnosis of diabetes. She says she just had recent blood work and her
fasting glucose was in the 80s, will hold off on starting medication for now will defer to primary care follow-up. Her renal function is acceptable. Patient cardioverted as documented in procedure note. Repeat EKG confirms sinus rhythm. Patient
feeling well after procedure. Will monitor after procedure, plan for discharge if remains stable in sinus rhythm.
Patient completely awake and alert after observation period. She is tolerating p.o. without any issues. She is completely asymptomatic, ambulatory with steady gait. Stable for discharge, advised to follow-up with cardiology after ER visit today.
Also recommended primary care follow-up as discussed regarding her blood sugar today. I did add hemoglobin A1c for outpatient follow-up. Notably her repeat Accu-Chek prior to discharge was greatly improved at 125. She decays understanding and is
comfortable with this plan. Spoke about return precautions and all questions answered.
Chronic conditions affecting care:
Atrial fibrillation
*Pulse Oximetry
SaO2: 94
Oxygen Mode of Delivery: Room air
Patient hypoxic: no (94%)
*EKG
Interpreted by ED Provider?: Yes
Heart Rate: 140
Rate: tachycardiac
Rhythm: a-fib
[place]: left axis deviation
Interval: normal interval
QRS Pattern: low voltage
Ischemia: non-specific ST changes
*Critical Care Note
Total Time (30-74mins, 75-104mins- exclusive of procedures): Not Applicable
Data Reviewed
Review of Other/Old Records Reveals: Labs, Records and Discharge Summary
Source: patient, records and spouse
Patient Management
Discussion with other providers: Medical Doctor Nuclear Medicine (Discussed with cardiology)
ED Attending Note
-
Portions of this chart may have been created with voice recognition software.� Occasional wrong word or��sound alike� substitutions may have occurred due to the inherent limitations of voice recognition software.
Discharge Plan
Departure
Patient Disposition: Home (Routine Discharge)
Date of Disposition: 07/07/25
Time of Disposition: 11:22
Patient with high blood pressure during this ER visit?: No
Discharge Problem:
Atrial fibrillation status post cardioversion, Hyperglycemia
Instructions: Atrial Fibrillation (DC), MODERATE SEDATION ADULT
Prescriptions:
No Action
citalopram 20 mg Tablet
20 mg PO DAILY
coenzyme Q10 [CoQ-10] 100 mg Capsule
100 mg PO DAILY
cholecalciferol (vitamin D3) 25 mcg (1,000 unit) Tablet
25 mcg PO DAILY
calcium carbonate [Calcium 600] 600 mg calcium (1,500 mg) Tablet
600 mg PO DAILY
carboxymethylcellulose sodium [Refresh Tears] 0.5 % Drops
1 drp BOTH EYES BIDPRN PRN (Reason: dry eyes)
acetaminophen 650 mg Tablet Extended Release
1,300 mg PO Q12H
Eliquis 5 mg Tablet
5 mg PO BID Qty: 60 0RF
diltiazem HCl [Cardizem CD] 180 mg capsule,extended release 24hr
180 mg PO DAILY Qty: 30 0RF
rosuvastatin [Crestor] 20 mg Tablet
20 mg PO DAILY
Referrals:
Bailee Benton, [Active, Cardiology] - Call in 1-3 days for appt
Activity Restrictions/Additional Instructions:
Thank you for visiting the Emergency Department at [facility].
1. Please schedule a follow up appointment as directed. Call first thing tomorrow morning to make an appointment.
2. If indicated, please take your medications as instructed and indicated on discharge paperwork.
3. If any of your symptoms do not improve, or persist, or become more severe within 6-12 hours, please return to the emergency department for further care.
4. Please return to the emergency department if you develop a headache, neck pain/stiffness, fever greater than 100.4F, chest pain, shortness of breath, persistent nausea, vomiting, slurred speech, difficulty walking, numbness/tingling, weakness,
signs of infection or any other symptoms that are worrisome to you.
Please call [phone] if you have any questions.
Interventions
Interventions:
*Risk Screen - Suicide Last Done: 07/07/25 09:17
*General Assessment Last Done: 07/07/25 09:17
*Neglect/Abuse Screening Last Done: 07/07/25 09:17
ED- Cardiac Assessment Last Done: 07/07/25 10:25
ED- Pulmonary Assessment Last Done: 07/07/25 09:13
Discharge Date and Time
Print Language: [place]
[2025-07-07 10:08] LABS: Hematocrit 43.0 % (37.0-47.0); Hemoglobin 14.7 g/dL (12.0-16.0); Mean Corp Hgb Conc. 34.2 g/dL (33.0-37.0); Mean Corpuscular Volume 98.6 fL (81.0-99.0); Nucleated Red Blood Cells % 0 %; Platelet Count 175 10^3/uL (130-400); Red Cell Dist. Width 13.3 % (11.5-14.5)
[2025-07-07 10:29] LABS: ALT (SGPT) 16 U/L (0-35); AST (SGOT) 19 U/L (14-36); Albumin 4.6 g/dl (3.5-5.0); Alkaline Phosphatase 58 U/L (38-126); Blood Urea Nitrogen 14 mg/dl (7-17); Calcium 9.5 mg/dl (8.4-10.2); Carbon Dioxide 25 mmol/L (22-30); Chloride 105 mmol/L (98-107); Estimated Creatinine Clearance 34 ml/min; Glucose 213 mg/dl (70-99); Potassium 4.2 mmol/L (3.5-5.1); Sodium 137 mmol/L (135-145); Total Protein 6.8 g/dl (6.3-8.2); eGFR 54.53
[2025-07-07 10:57] LABS: Glucose - Point of Care 125 mg/dl (70-99)
[2025-07-07 12:12] LABS: Glycohemoglobin (HgbA1c) 5.8 % (4.0-5.6)
== END 2025-07-07 11:39 | disposition home or self-care (01) ==
LOC: EMR 09:11
PROVIDERS: EMERGENCY PHYSICIAN Emergency Medicine; FAMILY PHYSICIAN Family Medicine
DX: I48.0 Paroxysmal atrial fibrillation (principal); R73.9 Hyperglycemia, unspecified; I12.9 Hypertensive chronic kidney disease with stage 1 through stage 4 chronic kidney disease, or unspecified chronic kidney disease; N18.9 Chronic kidney disease, unspecified; E78.5 Hyperlipidemia, unspecified; Z79.01 Long term (current) use of anticoagulants
CPT/HCPCS: 99285; 92960; 80053; 82962; 83036; 84439; 84443; 85025; 93005

== ENCOUNTER → 2025-07-13 07:46 | Outpatient (REF) | payer OTHER, SELFPAY | LOC: HWWDC 07:46 | PROVIDERS: ATTENDING PHYSICIAN Family Medicine | DX: Z12.31 Encounter for screening mammogram for malignant neoplasm of breast (principal) | CPT/HCPCS: 77063; 77067 ==

== ENCOUNTER → 2025-08-29 09:59 | Outpatient (REF) | payer OTHER, SELFPAY | LOC: RAD 09:59 | PROVIDERS: ATTENDING PHYSICIAN Family Medicine | DX: Z78.0 Asymptomatic menopausal state (principal); Z12.31 Encounter for screening mammogram for malignant neoplasm of breast | CPT/HCPCS: 77080 ==